=== PATIENT | female | born 1965 | race Caucasian/White ===

== ENCOUNTER → 2019-06-24 | Day surgery (SDC) | payer OTHER ==
[~2019-06-24] MED LIST: FENTANYL CITRATE/PF 100MCG/2 ML INJ ONE; LEVOTHYROXINE25 MCG PO; LIDOCAINE HCL 2% LOCAL INJ 5 ML SDV VIAL INJ ONE; MIDAZOLAM HCL 2 MG/2 ML VIAL ONE; OMEPRAZOLE40 MG PO; PROPOFOL IV EMULSION 10 MG/ML 50 ML VIAL ONE; RANITIDINE HCL150 MG PO; ZESTRIL20 MG PO
--- OUTSIDE RECORDS SUMMARY | 2019-06-24 11:09 | XMS REPORT | Summary of Care ---
Author Author [facility] Organization [facility] Address Unknown Phone Unavailable Encounter HQ Encntr_alias(FIN) [id number] Date(s): 03/11/17 - 03/11/17 [facility] [address] [place] [address]- Discharge Disposition: Home or Self Care Attending Physician: Mame Cantor DO Referring Physician: Mame Cantor DO Vital Signs No data available for this section Problem List Condition Effective Dates Status Health Status Informant Hypercholesterolemia Resolved (Confirmed) Hypertension(Confirm Resolved ed) Allergies, Adverse Reactions, Alerts Substance Reaction Severity Status penicillins Active Medications No data available for this section Results No data available for this section Immunizations No data available for this section Procedures Procedure Date Related Diagnosis Body Site Cholecystectomy Social History No data available for this section Assessment and Plan No data available for this section
--- OUTSIDE RECORDS SUMMARY | 2019-06-24 11:09 | XMS REPORT | Continuity of Care Document ---
Author Author [facility] Organization [facility] Address Unknown Phone Unavailable Care Team Providers Care Leak Patcher Name Role Phone [employer] Unavailable Unavailable Problems Problem Status Onset Date Classification Date Reported Comments Source ROUTINE Active 01/21/2019 [facility] DX: ROTUINE SCREENING Active 02/19/2017 [facility] R10.11 Active 11/02/2015 [facility] SCREENING Active 08/12/2014 [facility] Hypercholesterolemia (disorder) Resolved Problem 01/31/2019 [facility] Hypertensive disorder, systemic arterial (disorder) Resolved Problem 01/31/2019 [facility] Encounter for screening mammogram for malignant neoplasm of breast 01/31/2019 [facility] Edema, unspecified Active Problem 04/22/2019 [facility] Irritable bowel syndrome Active Problem 04/22/2019 [facility] Environmental allergies Active Problem 04/22/2019 [facility] Hypocalcemia Active Problem 04/22/2019 [facility] Leukocytosis, unspecified type Active Problem 04/22/2019 [facility] BMI 50.0-59.9, adult Active Problem 04/22/2019 [facility] Acute hyperglycemia Active Problem 04/22/2019 [facility] Essential hypertension Active Problem 04/22/2019 [facility] Morbid obesity due to excess calories Active Problem 04/22/2019 [facility] Acquired hypothyroidism Active Problem 04/22/2019 [facility] Environmental allergies Active Problem 12/09/2013 [facility] HTN (hypertension) Active Problem 06/10/2015 [facility] Obesity Active Problem 06/10/2015 [facility] Hypothyroid Active Problem 06/10/2015 [facility] Prediabetes Active Problem 06/10/2015 [facility] Other specified hypothyroidism Active Problem 07/26/2017 [facility] New onset type 1 diabetes mellitus, uncontrolled Active Problem 07/26/2017 [facility] Hyperglycemia Active Diagnosis 10/27/2017 [facility] Dysuria Active Diagnosis 10/27/2017 [facility] Cough Active Diagnosis 10/27/2017 [facility] Exposure to the flu Active Diagnosis 10/27/2017 [facility] Upper respiratory infection Active Diagnosis 10/19/2013 [facility] Cough Active Diagnosis 09/06/2014 [facility] Dependent edema Active Problem 06/10/2015 [facility] Acute sinusitis Active Diagnosis 09/06/2014 [facility] Environmental allergies Active Problem 06/10/2015 [facility] Abdominal cramping Active Diagnosis 07/21/2013 [facility] Excessive sweating Active Diagnosis 07/21/2013 [facility] Sinus tachycardia Active Diagnosis 07/21/2013 [facility] Nausea Active Diagnosis 10/21/2014 [facility] Diarrhea Active Diagnosis 10/21/2014 [facility] Light headed Active Diagnosis 07/21/2013 [facility] UTI (lower urinary tract infection) Active Diagnosis 07/20/2013 [facility] Right flank pain Active Diagnosis 07/20/2013 [facility] Flu-like symptoms Active Diagnosis 09/22/2014 [facility] URI (upper respiratory infection) Active Diagnosis 09/22/2014 [facility] Viral gastroenteritis Active Diagnosis 10/21/2014 [facility] Sore throat Active Diagnosis 01/23/2017 [facility] Screening for breast cancer Active Diagnosis 12/15/2016 [facility] Upper respiratory tract infection, unspecified type Active Diagnosis 12/15/2016 [facility] Sinusitis Active Diagnosis 12/05/2015 [facility] Pain of both breasts Active Diagnosis 05/23/2016 [facility] Medications Medication Details Route Status Patient Instructions Ordering Provider Order Date Source Bactrim DS 1 tablet Orally Active 800-160 MG Orally Twice a day Andre 10/16/2017 [facility] Tamiflu 1 capsule Orally Active 75 mg Orally daily Andre 10/16/2017 [facility] Lisinopril 1 tablet Orally Active 20 mg Orally Once a day [facility] 07/22/2017 [facility] Hydrochlorothiazide 1 tablet in the morning Orally Active 12.5 MG Orally Once a day prn [facility] 07/22/2017 [facility] Synthroid 1 tablet on an empty stomach in the morning Orally Active 25 MCG Orally Once a day [facility] 07/22/2017 [facility] Zithromax Z-Issac 2 tablets on the first day, then 1 tablet daily for 4 days Orally Active 250 MG Orally Once a day [place] 01/20/2017 [facility] Tessalon Perles 1 capsule as needed Orally Active 100 MG Orally Three times a day [place] 12/13/2016 [facility] Levaquin 1 tablet Orally Active 500 MG Orally Once a day [place] 12/13/2016 [facility] Levaquin 1 tablet Orally Active 500 mg Orally Once a day [place] 12/05/2015 [facility] Zithromax Z-Issac 2 tablets on the first day, then 1 tablet daily for 4 days Orally No Longer Active 250 MG Orally Once a day [place] 12/01/2015 [facility] Naproxen 1 tablet Orally Active 375 MG Orally Twice a day [place] 12/01/2015 [facility] Bentyl 1 tablet Orally Active 20 mg Orally Four times a day [place] 10/31/2015 [facility] Synthroid 1 tablet Orally Active 25 MCG Orally Once a day [facility] 06/09/2015 [facility] Hydrochlorothiazide 1-2 tablets Orally Active 12.5 MG Orally as needed (prn) [place] 05/31/2015 [facility] Promethazine HCl 1 tablet by mouth Active 25 MG by mouth every 6 hours prn nausea [facility] 10/19/2014 [facility] Zithromax Z-Issac 2 tablets on the first day, then 1 tablet daily for 4 days Orally Active 250 MG Orally Once a day [facility] 09/19/2014 [facility] Levaquin 1 tablet Orally Active 500 mg Orally Once a day [place] 07/29/2014 [facility] Albuterol Sulfate HFA 2 puffs as needed Inhalation Active 108 (90 Base) MCG/ACT Inhalation every 4 hrs [facility] 07/29/2014 [facility] Promethazine HCl 1 tablet at bedtime Orally Active 25 MG Orally Once a day [facility] 07/16/2013 [facility] Bentyl 1 capsule Orally Active 10 mg Orally Four times a day [facility] 07/16/2013 [facility] Entex T 1 tablet as needed Orally No Longer Active 60-375 MG Orally twice a day (bid) [facility] 07/12/2013 [facility] Bromfed DM 10 ml as needed Orally Active 30-2-10 MG/5ML Orally every 6 hrs [facility] 07/05/2013 [facility] Zithromax Z-Issac as directed Orally Active 250 MG Orally as directed [facility] 07/05/2013 [facility] Synthroid 1 tablet on an empty stomach in the morning Orally Active 25 MCG Orally Once a day [facility] 05/14/2013 [facility] Hydrochlorothiazide 1 capsule Orally Active 12.5 MG Orally prn [facility] 04/30/2013 [facility] Cipro 1 tablet Orally Active 250 MG Orally Twice a day [facility] 04/30/2013 [facility] Skelaxin 1/2-1 tablet Orally Active 800 MG Orally Three times a day prn back pain [facility] 04/30/2013 [facility] Synthroid 1 tablet po qd LAST REFILL, NEEDS TO BE SEEN NA Active 25 MCG [facility] Lisinopril 1 tablet po qd LAST REFILL, NEEDS TO BE SEEN NA Active 20 mg [facility] Ana 1 tablet Orally Active 180 MG Orally Once a day [facility] Omeprazole 1 capsule Orally Active 40 MG Orally Once a day [facility] Vitamin D (Ergocalciferol) 1 capsule Orally Active 09667 UNIT Orally once per week [facility] Tylenol 1 tablet as needed Orally Active 325 MG Orally PRN Andre [facility] Synthroid 1 tablet on an empty stomach in the morning Orally Active 25 MCG Orally Once a day [facility] Hydrochlorothiazide 1 tablet in the morning Orally Active 12.5 MG Orally Once a day prn [facility] Levothyroxine Sodium 1 tablet on an empty stomach in the morning Orally Active 25 MCG Orally [facility] a [facility] B12 Liquid Health Booster 15 ml Orally Active 1000 MCG/15ML Orally [facility] Ana 1 tablet Orally Active 180 MG Orally Once a [facility] Tylenol 1 tablet as needed Orally Active 325 MG Orally PRN [place] [facility] Ana 1 tablet Orally Active 180 MG Orally Once a day [facility] B12 Liquid Health Booster 15 ml Orally Active 1000 MCG/15ML Orally Once a day [facility] B12 Liquid Health Booster 15 ml Orally Active 1000 MCG/15ML Orally every 2 weeks [facility] Phenergan Unknown Orally No Longer Active 25 MG Orally [facility] Omeprazole 1 capsule Orally Active 40 MG Orally Once a day [facility] Synthroid 1 tablet Orally Active 25 MCG Orally Once a day [facility] Lisinopril 1 tablet orally Active 20 mg orally qd LAST REFILL, NEEDS TO BE SEEN [facility] Allergies, Adverse Reactions, Alerts Substance Category Reaction Severity Reaction type Status Date Reported Comments Source penicillin Adverse Reaction rash Adverse Reaction Active 10/16/2017 [facility] penicillins Assertion Drug allergy Active [facility] Immunizations Immunization Date Given Site Status Last Updated Comments Source FLU 18 YRS & [place] [id number] 05/21/2016 completed [facility] Results No Data Provided for This Section Pathology Reports No Data Provided for This Section Diagnostic Reports Report Value Date Source Breast Mammo Scrn GINO incl CAD MA BILATERAL DIGITAL SCREENING MAMMOGRAM WITH CAD: 01/29/2019 CLINICAL: /Routine. Current study was evaluated with a Computer Aided Detection (CAD) system. COMPARISON:Comparison is made to exams dated: 03/11/2017 mammogram, 10/27/2015 mammogram, and 09/02/2014 mammogram - [facility]. TECHNIQUE: Mammographic views were obtained using digital acquisition. VideoNot.es Version 1.3 was utilized for computer aided detection. FINDINGS: The tissue of both breasts is almost entirely fat. There are benign calcifications in both breasts. No significant masses, calcifications, or other findings are seen in either breast. There has been no significant interval change. IMPRESSION: BENIGN RECOMMENDATION:There is no mammographic evidence of malignancy. A 1 year screening mammogram is recommended.(01/30/2020) This exam was interpreted at [id number] for [facility]. Malorie cifuentest/penrad:01/29/2019 15:01:43 Senior Vice President And Chief Information Officer(s): Jannette Mclaughlin, [facility] letter sent: BI-RADS 1/2 Mammogram BI-RADS: 2 Benign 01/29/2019 [facility] Breast Mammo Scrn GINO w alfred incl CAD MA - BREAST MAMMO SCRN GINO W ALFRED INCL CAD MA BILATERAL DIGITAL SCREENING MAMMOGRAM 3D/2D WITH CAD: 03/11/2017 CLINICAL: /Screen. 2D digital mammographic images and 3D digital tomosynthesis images were obtained in the CC and MLO projections. Current study was evaluated with a Computer Aided Detection (CAD) system. Comparison is made to exams dated: 10/27/2015 mammogram, 09/02/2014 mammogram, 11/27/2011 mammogram, 10/23/2010 mammogram, 07/21/2009 mammogram - [facility] and 06/23/2007 mammogram - [facility]. The tissue of both breasts is almost entirely fat. There are benign calcifications in both breasts. No significant masses, calcifications, or other findings are seen in either breast. There has been no significant interval change. IMPRESSION: BENIGN There is no mammographic evidence of malignancy. A 1 year screening mammogram is recommended. Malorie herrera/penrad:03/11/2017 16:16:27 Senior Vice President And Chief Information Officer: Mary Bates, [facility] This exam was dictated and interpreted by [id number] for [facility]. letter sent: Normal exam Mammogram BI-RADS: 2 Benign 03/11/2017 [facility] Digital Mammo Screen Gino MA w alfred - DIGITAL MAMMO SCREEN GINO MA W ALFRED BILATERAL DIGITAL SCREENING MAMMOGRAM 3D/2D WITH CAD: 10/27/2015 CLINICAL: Screen. 2D digital mammographic images and 3D digital tomosynthesis images were obtained in the CC and MLO projections. Current study was evaluated with a Computer Aided Detection (CAD) system. Comparison is made to exams dated: 09/02/2014 mammogram, 11/27/2011 mammogram, 10/23/2010 mammogram, 07/21/2009 mammogram - [facility], 06/23/2007 mammogram - [facility] and 11/20/2006. The tissue of both breasts is almost entirely fat. There are benign calcifications in both breasts. No significant masses, calcifications, or other findings are seen in either breast. There has been no significant interval change. IMPRESSION: BENIGN There is no mammographic evidence of malignancy. A 1 year screening mammogram is recommended. Malorie herrera/penrad:10/30/2015 07:51:55 Senior Vice President And Chief Information Officer: Mary Bates [facility] This exam was dictated and interpreted by [id number] for [facility]. letter sent: Normal exam Mammogram BI-RADS: 2 Benign 10/27/2015 [facility] Digital Mammo Screen Gino MA w alfred - DIGITAL MAMMO SCREEN GINO MA W ALFRED BILATERAL DIGITAL SCREENING MAMMOGRAM 3D/2D WITH CAD: 09/02/2014 CLINICAL: Screen. 2D digital mammographic images and 3D digital tomosynthesis images were obtained in the CC and MLO projections. Current study was evaluated with a Computer Aided Detection (CAD) system. Comparison is made to exams dated: 11/27/2011 mammogram, 10/23/2010 mammogram, 07/21/2009 mammogram - [facility], 06/23/2007 mammogram - [facility] and 11/20/2006. The tissue of both breasts is almost entirely fat. There are benign calcifications in both breasts. No significant masses, calcifications, or other findings are seen in either breast. There has been no significant interval change. IMPRESSION: BENIGN There is no mammographic evidence of malignancy. A screening mammogram in one year is recommended. Malorie cifuentest/penrad:09/05/2014 08:49:09 Senior Vice President And Chief Information Officer: Mary Bates [facility] This exam was dictated and interpreted by [id number] for [facility]. letter sent: Normal exam Mammogram BI-RADS: 2 Benign 09/02/2014 [facility] Consultation Notes No Data Provided for This Section Discharge Summaries No Data Provided for This Section History and Physicals No Data Provided for This Section Vital Signs Vital Sign Value Date Comments Source Weight 313 10/16/2017 [facility] Height 64 10/16/2017 [facility] Temperature Oral (F) 98.3 F 10/16/2017 [facility] Heart Rate 97 10/16/2017 [facility] Diastolic (mm Hg) 90 10/16/2017 [facility] Systolic (mm Hg) 142 10/16/2017 [facility] Weight 312 07/22/2017 [facility] Height 64 07/22/2017 [facility] Heart Rate 82 07/22/2017 [facility] Diastolic (mm Hg) 92 07/22/2017 [facility] Systolic (mm Hg) 140 07/22/2017 [facility] Systolic (mm Hg) 118 01/20/2017 [facility] Height 64 01/20/2017 [facility] Temperature Oral (F) 98.8 F 01/20/2017 [facility] Heart Rate 94 01/20/2017 [facility] Diastolic (mm Hg) 70 01/20/2017 [facility] Weight 295 12/13/2016 [facility] Height 64 12/13/2016 [facility] Temperature Oral (F) 98.4 F 12/13/2016 [facility] Heart Rate 80 12/13/2016 [facility] Diastolic (mm Hg) 94 12/13/2016 [facility] Systolic (mm Hg) 156 12/13/2016 [facility] Weight 288 05/21/2016 [facility] Height 64 05/21/2016 [facility] Heart Rate 72 05/21/2016 [facility] Diastolic (mm Hg) 80 05/21/2016 [facility] Systolic (mm Hg) 130 05/21/2016 [facility] Systolic (mm Hg) 130 12/01/2015 [facility] Height 64 12/01/2015 [facility] Temperature Oral (F) 97.9 F 12/01/2015 [facility] Heart Rate 78 12/01/2015 [facility] Diastolic (mm Hg) 80 12/01/2015 [facility] Weight 322 10/19/2014 [facility] Height 64 10/19/2014 [facility] Temperature Oral (F) 98.7 F 10/19/2014 [facility] Heart Rate 80 10/19/2014 [facility] Diastolic (mm Hg) 70 10/19/2014 [facility] Systolic (mm Hg) 110 10/19/2014 [facility] Weight 322 09/19/2014 [facility] Height 64 09/19/2014 [facility] Temperature Oral (F) 98.2 F 09/19/2014 [facility] Heart Rate 80 09/19/2014 [facility] Diastolic (mm Hg) 90 09/19/2014 [facility] Systolic (mm Hg) 126 09/19/2014 [facility] Weight 323 07/29/2014 [facility] Height 64 07/29/2014 [facility] Temperature Oral (F) 98.1 F 07/29/2014 [facility] Heart Rate 84 07/29/2014 [facility] Diastolic (mm Hg) 80 07/29/2014 [facility] Systolic (mm Hg) 140 07/29/2014 [facility] Weight 307 09/09/2013 [facility] Height 64 09/09/2013 [facility] Heart Rate 80 09/09/2013 [facility] Diastolic (mm Hg) 90 09/09/2013 [facility] Systolic (mm Hg) 142 09/09/2013 [facility] Weight 304 07/16/2013 [facility] Height 64 07/16/2013 [facility] Temperature Oral (F) 98.4 F 07/16/2013 [facility] Heart Rate 98 07/16/2013 [facility] Diastolic (mm Hg) 98 07/16/2013 [facility] Systolic (mm Hg) 148 07/16/2013 [facility] Weight 308.5 07/05/2013 [facility] Height 64 07/05/2013 [facility] Temperature Oral (F) 98.1 F 07/05/2013 [facility] Heart Rate 70 07/05/2013 [facility] Diastolic (mm Hg) 60 07/05/2013 [facility] Systolic (mm Hg) 130 07/05/2013 [facility] Weight 308.5 07/05/2013 [facility] Height 64 07/05/2013 [facility] Temperature Oral (F) 98.1 F 07/05/2013 [facility] Heart Rate 70 07/05/2013 [facility] Diastolic (mm Hg) 60 07/05/2013 [facility] Systolic (mm Hg) 130 07/05/2013 [facility] Weight 307 05/14/2013 [facility] Height 64 05/14/2013 [facility] Heart Rate 78 05/14/2013 [facility] Diastolic (mm Hg) 80 05/14/2013 [facility] Systolic (mm Hg) 136 05/14/2013 [facility] Weight 310 04/30/2013 [facility] Height 64 04/30/2013 [facility] Temperature Oral (F) 98.1 F 04/30/2013 [facility] Heart Rate 80 04/30/2013 [facility] Diastolic (mm Hg) 100 04/30/2013 [facility] Systolic (mm Hg) 150 04/30/2013 [facility] Encounters Location Location Details Encounter Type Encounter Number Reason For Visit Attending Provider ADM Date DC Date Status Source [facility] PAIN IN RIGHT SIDE/[place] FEET [id number] 04/30/2013 04/30/2013 [facility] PAIN IN RIGHT SIDE/[place] FEET [id number] 04/30/2013 04/30/2013 [facility] PAIN IN RIGHT SIDE/[place] FEET [id number] 04/30/2013 04/30/2013 [facility] PAIN IN RIGHT SIDE/[place] FEET [id number] 04/30/2013 04/30/2013 [facility] PAIN IN RIGHT SIDE/[place] FEET [id number] 04/30/2013 04/30/2013 [facility] PAIN IN RIGHT SIDE/[place] [id number] 04/30/2013 04/30/2013 [facility] PAIN IN RIGHT SIDE/[place] [id number] 04/30/2013 04/30/2013 [facility] PAIN IN RIGHT SIDE/[place] FEET [id number] 04/30/2013 04/30/2013 [facility] PAIN IN RIGHT SIDE/[place] FEET [id number] 04/30/2013 04/30/2013 [facility] PAIN IN RIGHT SIDE/SWOLLEN FEET [id number] 04/30/2013 04/30/2013 [facility] PAIN IN RIGHT SIDE/SWOLLEN FEET [id number] 04/30/2013 04/30/2013 [facility] PAIN IN RIGHT SIDE/SWOLLEN FEET [id number] 04/30/2013 04/30/2013 [facility] PAIN IN RIGHT SIDE/SWOLLEN FEET [id number] 04/30/2013 04/30/2013 [facility] PAIN IN RIGHT SIDE/SWOLLEN FEET [id number] 04/30/2013 04/30/2013 [facility] PAIN IN RIGHT SIDE/SWOLLEN FEET [id number] 04/30/2013 04/30/2013 [facility] Unknown [id number] 05/03/2013 05/03/2013 [facility] Unknown [id number] 05/03/2013 05/03/2013 [facility] Unknown [id number] 05/03/2013 05/03/2013 [facility] Unknown [id number] 05/03/2013 05/03/2013 [facility] Unknown [id number] 05/03/2013 05/03/2013 [facility] Unknown [id number] 05/03/2013 05/03/2013 [facility] Unknown [id number] 05/03/2013 05/03/2013 [facility] Unknown [id number] 05/03/2013 05/03/2013 [facility] Unknown [id number] 05/03/2013 05/03/2013 [facility] Unknown [id number] 05/03/2013 05/03/2013 [facility] Unknown [id number] 05/03/2013 05/03/2013 [facility] Unknown [id number] 05/03/2013 05/03/2013 [facility] Unknown [id number] 05/03/2013 05/03/2013 [facility] Unknown [id number] 05/03/2013 05/03/2013 [facility] Unknown [id number] 05/03/2013 05/03/2013 [facility] Unknown [id number] 05/03/2013 05/03/2013 [facility] Unknown [id number] 05/03/2013 05/03/2013 [facility] Follow-Up [id number] 05/14/2013 05/14/2013 [facility] Follow-Up [id number] 05/14/2013 05/14/2013 [facility] Follow-Up [id number] 05/14/2013 05/14/2013 [facility] Follow-Up [id number] 05/14/2013 05/14/2013 [facility] Follow-Up [id number] 05/14/2013 05/14/2013 [facility] Follow-Up [id number] 05/14/2013 05/14/2013 [facility] Follow-Up [id number] 05/14/2013 05/14/2013 [facility] Follow-Up [id number] 05/14/2013 05/14/2013 [facility] Follow-Up [id number] 05/14/2013 05/14/2013 [facility] Follow-Up [id number] 05/14/2013 05/14/2013 [facility] Follow-Up [id number] 05/14/2013 05/14/2013 [facility] Follow-Up [id number] 05/14/2013 05/14/2013 [facility] Follow-Up [id number] 05/14/2013 05/14/2013 [facility] Follow-Up [id number] 05/14/2013 05/14/2013 [facility] Follow-Up [id number] 05/14/2013 05/14/2013 [facility] sore throat [id number] 07/05/2013 07/05/2013 [facility] sore throat [id number] 07/05/2013 07/05/2013 [facility] sore throat [id number] 07/05/2013 07/05/2013 [facility] sore throat [id number] 07/05/2013 07/05/2013 [facility] sore throat [id number] 07/05/2013 07/05/2013 [facility] sore throat [id number] 07/05/2013 07/05/2013 [facility] sore throat [id number] 07/05/2013 07/05/2013 [facility] sore throat [id number] 07/05/2013 07/05/2013 [facility] sore throat [id number] 07/05/2013 07/05/2013 [facility] sore throat [id number] 07/05/2013 07/05/2013 [facility] sore throat [id number] 07/05/2013 07/05/2013 [facility] sore throat [id number] 07/05/2013 07/05/2013 [facility] Unknown [id number] 07/12/2013 07/12/2013 [facility] Unknown [id number] 07/12/2013 07/12/2013 [facility] Unknown [id number] 07/12/2013 07/12/2013 [facility] Unknown [id number] 07/12/2013 07/12/2013 [facility] Unknown [id number] 07/12/2013 07/12/2013 [facility] Unknown [id number] 07/12/2013 07/12/2013 [facility] Unknown [id number] 07/12/2013 07/12/2013 [facility] Unknown [id number] 07/12/2013 07/12/2013 [facility] Unknown [id number] 07/12/2013 07/12/2013 [facility] Unknown [id number] 07/12/2013 07/12/2013 [facility] Unknown [id number] 07/12/2013 07/12/2013 [facility] Unknown [id number] 07/12/2013 07/12/2013 [facility] Unknown [id number] 07/12/2013 07/12/2013 [facility] Unknown [id number] 07/12/2013 07/12/2013 [facility] Unknown [id number] 07/12/2013 07/12/2013 [facility] Unknown [id number] 07/12/2013 07/12/2013 [facility] DIARRHEA [id number] 07/16/2013 07/16/2013 [facility] DIARRHEA [id number] 07/16/2013 07/16/2013 [facility] DIARRHEA [id number] 07/16/2013 07/16/2013 [facility] DIARRHEA [id number] 07/16/2013 07/16/2013 [facility] DIARRHEA [id number] 07/16/2013 07/16/2013 [facility] DIARRHEA [id number] 07/16/2013 07/16/2013 [facility] DIARRHEA [id number] 07/16/2013 07/16/2013 [facility] DIARRHEA [id number] 07/16/2013 07/16/2013 [facility] DIARRHEA [id number] 07/16/2013 07/16/2013 [facility] DIARRHEA [id number] 07/16/2013 07/16/2013 [facility] DIARRHEA [id number] 07/16/2013 07/16/2013 [facility] DIARRHEA [id number] 07/16/2013 07/16/2013 [facility] DIARRHEA [id number] 07/16/2013 07/16/2013 [facility] SWOLLEN FEET [id number] 09/09/2013 09/09/2013 [facility] SWOLLEN FEET [id number] 09/09/2013 09/09/2013 [facility] SWOLLEN FEET [id number] 09/09/2013 09/09/2013 [facility] SWOLLEN FEET [id number] 09/09/2013 09/09/2013 [facility] SWOLLEN FEET [id number] 09/09/2013 09/09/2013 [facility] SWOLLEN FEET [id number] 09/09/2013 09/09/2013 [facility] SWOLLEN FEET [id number] 09/09/2013 09/09/2013 [facility] SWOLLEN FEET [id number] 09/09/2013 09/09/2013 [facility] SWO[place]EN FEET [id number] 09/09/2013 09/09/2013 [facility] SWO[place] FEET [id number] 09/09/2013 09/09/2013 [facility] SWOLLEN FEET [id number] 09/09/2013 09/09/2013 [facility] SINUS [id number] 07/29/2014 07/29/2014 [facility] SINUS [id number] 07/29/2014 07/29/2014 [facility] SINUS [id number] 07/29/2014 07/29/2014 [facility] SINUS [id number] 07/29/2014 07/29/2014 [facility] SINUS [id number] 07/29/2014 07/29/2014 [facility] SINUS [id number] 07/29/2014 07/29/2014 [facility] SINUS [id number] 07/29/2014 07/29/2014 [facility] SINUS [id number] 07/29/2014 07/29/2014 [facility] SINUS [id number] 07/29/2014 07/29/2014 [facility] SINUS [id number] 07/29/2014 07/29/2014 [facility] [id number] Radha Brown 09/02/2014 09/03/2014 [facility] flu like sx's [id number] 09/19/2014 09/19/2014 [facility] flu like sx's [id number] 09/19/2014 09/19/2014 [facility] flu like sx's [id number] 09/19/2014 09/19/2014 [facility] flu like sx's [id number] 09/19/2014 09/19/2014 [facility] flu like sx's [id number] 09/19/2014 09/19/2014 [facility] flu like sx's [id number] 09/19/2014 09/19/2014 [facility] flu like sx's [id number] 09/19/2014 09/19/2014 [facility] flu like sx's [id number] 09/19/2014 09/19/2014 [facility] flu like sx's [id number] 09/19/2014 09/19/2014 [facility] CONSTANT VOMITTING [id number] 10/19/2014 10/19/2014 [facility] CONSTANT VOMITTING [id number] 10/19/2014 10/19/2014 [facility] CONSTANT VOMITTING [id number] 10/19/2014 10/19/2014 [facility] CONSTANT VOMITTING [id number] 10/19/2014 10/19/2014 [facility] CONSTANT VOMITTING [id number] 10/19/2014 10/19/2014 [facility] CONSTANT VOMITTING [id number] 10/19/2014 10/19/2014 [facility] CONSTANT VOMITTING [id number] 10/19/2014 10/19/2014 [facility] CONSTANT VOMITTING [id number] 10/19/2014 10/19/2014 [facility] cough/chest congestion [id number] 12/19/2014 12/19/2014 [facility] cough/chest congestion [id number] 12/19/2014 12/19/2014 [facility] cough/chest congestion [id number] 12/19/2014 12/19/2014 [facility] cough/chest congestion [id number] 12/19/2014 12/19/2014 [facility] cough/chest congestion [id number] 12/19/2014 12/19/2014 [facility] cough/chest congestion [id number] 12/19/2014 12/19/2014 [facility] cough/chest congestion [id number] 12/19/2014 12/19/2014 [facility] CHEST CONGESTION AND COUGH [id number] 01/11/2015 01/11/2015 [facility] CHEST CONGESTION AND COUGH [id number] 01/11/2015 01/11/2015 [facility] CHEST CONGESTION AND COUGH [id number] 01/11/2015 01/11/2015 [facility] CHEST CONGESTION AND COUGH [id number] 01/11/2015 01/11/2015 [facility] CHEST CONGESTION AND COUGH [id number] 01/11/2015 01/11/2015 [facility] CHEST CONGESTION AND COUGH [id number] 01/11/2015 01/11/2015 [facility] CHEST CONGESTION AND COUGH [id number] 01/11/2015 01/11/2015 [facility] FOOT AND LEG PAIN/TIGHTNESS [id number] 03/28/2015 03/28/2015 [facility] FOOT AND LEG PAIN/TIGHTNESS [id number] 03/28/2015 03/28/2015 [facility] FOOT AND LEG PAIN/TIGHTNESS [id number] 03/28/2015 03/28/2015 [facility] FOOT AND LEG PAIN/TIGHTNESS [id number] 03/28/2015 03/28/2015 [facility] FOOT AND LEG PAIN/TIGHTNESS [id number] 03/28/2015 03/28/2015 [facility] FOOT AND LEG PAIN/TIGHTNESS [id number] 03/28/2015 03/28/2015 [facility] FOOT AND LEG PAIN/TIGHTNESS [id number] 03/28/2015 03/28/2015 [facility] Results [id number] 03/30/2015 03/30/2015 [facility] Results [id number] 03/30/2015 03/30/2015 [facility] Results [id number] 03/30/2015 03/30/2015 [facility] Results [id number] 03/30/2015 03/30/2015 [facility] Results [id number] 03/30/2015 03/30/2015 [facility] Results [id number] 03/30/2015 03/30/2015 [facility] Results [id number] 03/30/2015 03/30/2015 [facility] lab results [id number] 06/09/2015 06/09/2015 [facility] lab results [id number] 06/09/2015 06/09/2015 [facility] lab results [id number] 06/09/2015 06/09/2015 [facility] lab results [id number] 06/09/2015 06/09/2015 [facility] lab results [id number] 06/09/2015 06/09/2015 [facility] lab results [id number] 06/09/2015 06/09/2015 [facility] LAB RESULTS [id number] 07/20/2015 07/20/2015 [facility] LAB RESULTS [id number] 07/20/2015 07/20/2015 [facility] LAB RESULTS [id number] 07/20/2015 07/20/2015 [facility] LAB RESULTS [id number] 07/20/2015 07/20/2015 [facility] LAB RESULTS [id number] 07/20/2015 07/20/2015 [facility] Outpatient [id number] Mame Cantor 10/27/2015 10/28/2015 [facility] Test results [id number] 11/07/2015 11/07/2015 [facility] Test results [id number] 11/07/2015 11/07/2015 [facility] Test results [id number] 11/07/2015 11/07/2015 [facility] Test results [id number] 11/07/2015 11/07/2015 [facility] Test results [id number] 11/07/2015 11/07/2015 [facility] Refill [id number] 11/24/2015 11/24/2015 [facility] Refill [id number] 11/24/2015 11/24/2015 [facility] Refill [id number] 11/24/2015 11/24/2015 [facility] Refill [id number] 11/24/2015 11/24/2015 [facility] Sinus problems [id number] 12/01/2015 12/01/2015 [facility] Sinus problems [id number] 12/01/2015 12/01/2015 [facility] Sinus problems [id number] 12/01/2015 12/01/2015 [facility] Unknown [id number] 12/05/2015 12/05/2015 [facility] Unknown [id number] 12/05/2015 12/05/2015 [facility] Pt has breast pain [id number] 05/21/2016 05/21/2016 [facility] Outpatient [id number] Mame JeanJohnson 03/11/2017 03/12/2017 [facility] Outpatient [id number] Mame Johnson 01/29/2019 01/30/2019 [facility] Procedures Procedure Code Date Perfomer Comments Source Cholecystectomy [id number] [facility] Assessment and Plan No Data Provided for This Section Plan of Care No Data Provided for This Section Social History Social History Date Source No data available for this section 01/30/2019 [facility] Social History ElementQualifiersDate Reported 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 None May 21, 2016 Last Colonoscopy: . 2010May 21, 2016 Tobacco Use: . Are you a: never smoker May 21, 2016 Flu Vaccine: . NO May 21, 2016 Use of recreational / street drugs? . Answer: No May 21, 2016 Do you have pets? . Status: Yes, Type: dog(s) May 21, 2016 Ethnicity . Status , Is martiniquais your primary language? Yes May 21, 2016 Marital Status: . May 21, 2016 Caffeine intake? . Status: Yes, What type: Coffee, 1 - 2 cup(s) a day May 21, 2016 Do you exercise? . Answer: Yes, Type: walking May 21, 2016 Depression Screening: . negative May 21, 2016 Last Bone Density: . never May 21, 2016 Do you drink alcohol? . Status: Yes, Type: Beer, How often? Socially May 21, 2016 05/21/2016 [facility] Family History Value Date Source QualifierDescriptionCommentDate Reported Maternal Grandmother ovarian cancer May 21, 2016 Paternal Grandmother Comment not available May 21, 2016 Siblings Comment not available May 21, 2016 Maternal Grandfather Comment not available May 21, 2016 Children Comment not available May 21, 2016 Father diabetes mellitus, dementia May 21, 2016 Paternal Grandfather diabetes mellitus May 21, 2016 Mother COPD May 21, 2016 Other: Comment not available May 21, 2016 05/23/2016 [facility] QualifierDescriptionCommentDate Reported Maternal Grandmother ovarian cancer December 01, 2015 Paternal Grandmother Comment not available December 01, 2015 Siblings Comment not available December 01, 2015 Maternal Grandfather Comment not available December 01, 2015 Children Comment not available December 01, 2015 Father diabetes mellitus, dementia December 01, 2015 Paternal Grandfather diabetes mellitus December 01, 2015 Mother COPD December 01, 2015 Other: Comment not available December 01, 2015 12/05/2015 [facility] QualifierDescriptionCommentDate Reported Mother COPD Oct 19, 2014 Maternal Grandmother ovarian cancer Oct 19, 2014 Father diabetes mellitus, dementia Oct 19, 2014 Paternal Grandfather diabetes mellitus Oct 19, 2014 10/21/2014 [facility] QualifierDescriptionCommentDate Reported Mother COPD Sep 19, 2014 Maternal Grandmother ovarian cancer Sep 19, 2014 Father diabetes mellitus, dementia Sep 19, 2014 Paternal Grandfather diabetes mellitus Sep 19, 2014 09/22/2014 [facility] QualifierDescriptionCommentDate Reported Mother COPD Jul 29, 2014 Maternal Grandmother ovarian cancer Jul 29, 2014 Father diabetes mellitus, dementia Jul 29, 2014 Paternal Grandfather diabetes mellitus Jul 29, 2014 09/06/2014 [facility] QualifierDescriptionCommentDate Reported Mother COPD Sep 09, 2013 Maternal Grandmother ovarian cancer Sep 09, 2013 Father diabetes mellitus, dementia Sep 09, 2013 Paternal Grandfather diabetes mellitus Sep 09, 2013 12/09/2013 [facility] QualifierDescriptionCommentDate Reported Mother COPD Jul 05, 2013 Maternal Grandmother ovarian cancer Jul 05, 2013 Father diabetes mellitus, dementia Jul 05, 2013 Paternal Grandfather diabetes mellitus Jul 05, 2013 10/19/2013 [facility] QualifierDescriptionCommentDate Reported Mother COPD Jul 16, 2013 Maternal Grandmother ovarian cancer Jul 16, 2013 Father diabetes mellitus, dementia Jul 16, 2013 Paternal Grandfather diabetes mellitus Jul 16, 2013 07/21/2013 [facility] QualifierDescriptionCommentDate Reported Mother COPD May 14, 2013 Maternal Grandmother ovarian cancer May 14, 2013 Father diabetes mellitus, dementia May 14, 2013 Paternal Grandfather diabetes mellitus May 14, 2013 07/20/2013 [facility] QualifierDescriptionCommentDate Reported Mother COPD Apr 30, 2013 Maternal Grandmother ovarian cancer Apr 30, 2013 Father diabetes mellitus, dementia Apr 30, 2013 Paternal Grandfather diabetes mellitus Apr 30, 2013 07/20/2013 [facility] Advance Directives No Data Provided for This Section Functional Status No Data Provided for This Section
--- OUTSIDE RECORDS SUMMARY | 2019-06-24 11:09 | XMS REPORT | Clinical Summary ---
Author Author [facility] Address Unknown Phone Unavailable Care Team Providers Care Manuscripts Curator Name Role Phone Mame Cantor DO PCP Allergies Comments Active Allergy Reactions Severity Noted Date Penicillins Rash Low 01/02/2018 Medications End Date Status Medication Sig Dispensed Refills Start Date Active lisinopril 20 mg. 0 (PRINIVIL,ZESTRIL) 20 mg 8 tablet Active levothyroxine (SYNTHROID, 25 mcg. 0 LEVOXYL) 25 mcg tablet 8 Active hydroCHLOROthiazide 12.5 mg. 0 (HYDRODIURIL) 12.5 MG 8 tablet Active omeprazole (PriLOSEC) 40 40 mg. 0 MG capsule 8 Active fexofenadine (JHON) Take 180 mg 0 180 MG tablet by mouth daily. Active Problems Problem Noted Date Incisional hernia x 2, without obstruction or gangrene 01/02/2018 Morbid obesity due to excess calories 01/02/2018 Essential hypertension 01/02/2018 Family History Medical History Relation Name Comments Diabetes Father Dad Ovarian cancer Maternal Grandma Grandmother Heart disease Mother Mom CHF Asthma Sister Relation Name Status Comments Father Dad Maternal Grandmother Grandma Mother Mom Sister Social History Date Tobacco Use Types Packs/Day Years Used Never Smoker Smokeless Tobacco: Never Used Drinks/Week oz/Week Comments Alcohol Use 1-3 Standard drinks or equivalent 1.0 - 3.0 Social drinker / occassional beer or mixed drink Yes Sex Assigned at Date Recorded Not on file Industry Job Start Date Occupation Not on file Not on file Not on file Travel End Travel History Travel Start No recent travel history available. Last Filed Vital Signs Not on file Plan of Treatment Health Maintenance Due Date Last Done Comments CERVICAL CANCER SCREENING 1987 BREAST CANCER SCREENING 2016 COLONOSCOPY SCREENING 2016 SHINGLES VACCINES (#1) 2016 INFLUENZA VACCINE 04/29/2019 Results Not on fileafter 06/23/2018 Insurance Type Payer Benefit Subscriber ID Effective Phone Address Plan / Dates Group PPO AETNA AETNA PPO xxxxxxxxxx [id number] OPEN resent CHOICE Advance Directives For more information, please contact: [phone] Patient Haz Tech Explanation Type Date Recorded Advance Directives, Living Will and Medical Power of Lithopone Mill Worker
--- OUTSIDE RECORDS SUMMARY | 2019-06-24 11:09 | XMS REPORT | Summary of Care ---
Author Organization Unknown Address Unknown Phone Unavailable Encounter HQ Encntr_alibrandon(CARLOS) [id number] Date(s): 09/02/14 - 09/02/14 [facility] [address] [place], [place] [id number] [place] [address] Discharge Disposition: Home Physician Attending: Radha Brown MD Physician_Referring: Radha Brown MD Reason for Visit SCREENING Problem List Condition Effective Dates Status Health Status Informant Hypercholesterolemia Resolved (Confirmed) Hypertension(Confirm Resolved ed) Allergies, Adverse Reactions, Alerts Substance Reaction Severity Status penicillins Active Medications No data available for this section Medications Administered During Your Visit No data available for this section Immunizations No data available for this section
--- OUTSIDE RECORDS SUMMARY | 2019-06-24 11:09 | XMS REPORT | Summary of Care ---
Author Author [facility] Organization [facility] Address Unknown Phone Unavailable Encounter HQ Encntr_alias(FIN) [id number] Date(s): 10/27/15 - 10/27/[address] [facility] [address] [place] [address]- [phone] Discharge Disposition: Home Attending Physician: Mame Cantor DO Referring Physician: [...]
--- OUTSIDE RECORDS SUMMARY | 2019-06-24 11:09 | XMS REPORT ---
Author Author Magalys Pereira [facility] [employer] Address Unknown Phone Unavailable Care Team Providers Care Xm1 Tank Driver Name Role Phone Magalys Pereira Unavailable Allergies, Adverse Reactions, Alerts Substance Reaction Event Type penicillin rash Drug Allergy Problems Problem Type Condition Code Onset Dates Condition Status Problem Edema, unspecified R60.9 Active Problem Acute hyperglycemia R73.9 Active Problem Other specified hypothyroidism E03.8 Active Problem New onset type 1 diabetes mellitus, uncontrolled E10.65 Active Problem Morbid obesity due to excess calories E66.01 Active Problem Leukocytosis, unspecified type D72.829 Active Problem Environmental allergies Z91.09 Active Problem Essential hypertension I10 Active Problem Acquired hypothyroidism E03.9 Active Problem Irritable bowel syndrome K58.9 Active Assessment Screening for breast cancer Z12.39 Active Assessment Sore throat J02.9 Active Assessment Upper respiratory tract infection, unspecified type J06.9 Active Assessment New onset type 1 diabetes mellitus, uncontrolled E10.65 Active Assessment Leukocytosis, unspecified type D72.829 Active Assessment Essential hypertension I10 Active Medications Medication Code System Code Instructions Start Date End Date Status Dosage Ana [facility] [address]-06 180 MG Orally Once a day Active 1 tablet Tessalon Perles [facility] [address]-91 100 MG Orally Three times a day December 13, 2016 December 23, 2016 Active 1 capsule as needed Tylenol [facility] [address]-15 325 MG Orally PRN Active 1 tablet as needed Hydrochlorothiazide [facility] [address]-06 12.5 MG Orally as needed (prn) May 31, 2015 Active 1-2 tablets Levaquin [facility] [address]-05 500 MG Orally Once a day December 13, 2016 December 23, 2016 Active 1 tablet Omeprazole [facility] [address]-17 40 MG Orally Once a day Active 1 capsule Vital Signs Date/Time: December 13, 2016 BMI 50.63 Index Weight 295 lbs Height 64 in Temperature 98.4 F Cardiac Monitoring Heart Rate 80 /min Blood Pressure Diastolic 94 mm Hg Blood Pressure Systolic 156 mm Hg Results Name Result Date Reference Range Unit Abnormality Flag Chest 2 views- Xray CBC ----Platelets 350 20161213 ----NEUTROPHILS MID-0.6,GRA-8.5 20161213 ----MCHC 31.9 20161213 ----MCH 25.6L 20161213 ----MCV 80.3 20161213 ----WBC 11.2h 20161213 ----RDW 15.1H 20161213 ----RBC 5.50 20161213 ----Hemoglobin 14.1 20161213 ----Hematocrit 44.2 20161213 RAPID STREP ----Negative negative 20161213 Summary Purpose eClinicalWorks Submission
--- OUTSIDE RECORDS SUMMARY | 2019-06-24 11:09 | XMS REPORT | Summary of Care ---
Author Author [facility] Organization [facility] Address Unknown Phone Unavailable Encounter HQ Encntr_alias(FIN) [id number] Date(s): 01/29/19 - 01/29/19 [facility] [address] [place] [address]- Encounter Diagnosis Encounter for screening mammogram for malignant neoplasm of breast (Final) - Discharge Disposition: Home or Self Care Attending Physician: Mame Ambriz DO Referring Physician: Mame Ambriz DO Vital Signs No data available for this section Problem List Condition Effective Dates Status Health Status Informant Hypercholesterolemia Resolved (Confirmed) Hypertension(Confirm Resolved ed) Allergies, Adverse Reactions, Alerts Substance Reaction Severity Status penicillins Active Medications No data available for this section Results No data available for this section Immunizations No data available for this section Procedures Procedure Date Related Diagnosis Body Site Status Cholecystectomy Completed Social History No data available for this section Assessment and Plan No data available for this section
--- OUTSIDE RECORDS SUMMARY | 2019-06-24 11:10 | XMS REPORT ---
Author Author Mame Ambriz Organization [employer] Address Unknown Phone Unavailable Care Team Providers Care General Lithographic Worker Name Role Phone Mame Ambriz CP Unavailable Allergies No Known Allergies Problems Problem Type Condition Code Onset Dates Condition Status Problem Edema, unspecified R60.9 Active Problem Irritable bowel syndrome K58.9 Active Problem Environmental allergies Z91.09 Active Problem Hypocalcemia E83.51 Active Problem Leukocytosis, unspecified type D72.829 Active Problem BMI 50.0-59.9, adult Z68.43 Active Problem Acute hyperglycemia R73.9 Active Problem Essential hypertension I10 Active Problem Morbid obesity due to excess calories E66.01 Active Problem Acquired hypothyroidism E03.9 Active Medications Medication Code System Code Instructions Start Date End Date Status Dosage Lisinopril [facility] 23879889353 20 mg orally qd LAST REFILL, NEEDS TO BE SEEN Active 1 tablet Results No Known Results Summary Purpose eClinicalWorks Submission
--- OUTSIDE RECORDS SUMMARY | 2019-06-24 11:10 | XMS REPORT ---
Author Author Magalys Pereira [facility] [employer] Address Unknown Phone Unavailable Care Team Providers Care Cleaning Porter Name Role Phone Magalys Pereira Unavailable Encounters Encounter Location Date Follow-Up [facility] May 14, 2013 DIARRHEA [facility] Jul 16, 2013 sore throat [facility] Jul 05, 2013 [place] [facility] Sep 09, 2013 Unknown [facility] May 03, 2013 Unknown [facility] Jul 12, 2013 PAIN IN RIGHT SIDE/[place] FEET [facility] Apr 30, 2013 CONSTANT VOMITTING [facility] Oct 19, 2014 Unknown [facility] December 05, 2015 SINUS [facility] Jul 29, 2014 flu like sx's [facility] Sep 19, 2014 Test results [facility] Nov 07, 2015 Refill [facility] Nov 24, 2015 lab results [facility] Jun 09, 2015 LAB RESULTS [facility] Jul 20, 2015 FOOT AND LEG PAIN/TIGHTNESS [facility] March 28, 2015 Results [facility] March 30, 2015 cough/chest congestion [facility] December 19, 2014 CHEST CONGESTION AND COUGH [facility] January 11, 2015 Sinus problems [facility] December 01, 2015 Problems Problem Type Condition ICD-9 Code Onset Dates Condition Status Problem Other specified hypothyroidism E03.8 Active Problem Edema, unspecified R60.9 Active Problem Morbid obesity due to excess calories E66.01 Active Problem Acquired hypothyroidism E03.9 Active Problem New onset type 1 diabetes mellitus, uncontrolled E10.65 Active Problem Essential hypertension I10 Active Problem Acute hyperglycemia R73.9 Active Problem Irritable bowel syndrome K58.9 Active Problem Environmental allergies Z91.09 Active Medications Medication Code System Code Instructions Start Date End Date Status Dosage Zithromax Z-Issac [facility] [address]-71 250 MG Orally Once a day December 01, 2015 December 06, 2015 Inactive 2 tablets on the first day, then 1 tablet daily for 4 days Levaquin [facility] [address]-08 500 mg Orally Once a day December 05, 2015 December 15, 2015 Active 1 tablet Social History Social History Element Qualifiers Date 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 None December 01, 2015 Last Colonoscopy: . 2010December 01, 2015 Tobacco Use: . Are you a: never smoker December 01, 2015 Flu Vaccine: . NO December 01, 2015 Use of recreational / street drugs? . Answer: No December 01, 2015 Do you have pets? . Status: Yes, Type: dog(s) December 01, 2015 Ethnicity . Status , Is polish your primary language? Yes December 01, 2015 Marital Status: . December 01, 2015 Caffeine intake? . Status: Yes, What type: Coffee, 1 - 2 cup(s) a day December 01, 2015 Do you exercise? . Answer: Yes, Type: walking December 01, 2015 Depression Screening: . negative December 01, 2015 Last Bone Density: . never December 01, 2015 Do you drink alcohol? . Status: Yes, Type: Beer, How often? Socially December 01, 2015 Summary Purpose eClinicalWorks Submission
--- OUTSIDE RECORDS SUMMARY | 2019-06-24 11:10 | XMS REPORT ---
Author Author Mame Pope [facility] eClinicalWorks Address Unknown Phone Unavailable Care Team Providers Care Senior Architect Name Role Phone Juan AAlex Mame CP Unavailable Allergies, Adverse Reactions, Alerts Substance Reaction Event Type penicillin rash Drug Allergy Encounters Encounter Location Date Follow-Up [facility] May 14, 2013 Unknown [facility] May 03, 2013 Unknown [facility] Jul 12, 2013 PAIN IN RIGHT SIDE/SWOLLEN FEET [facility] Apr 30, 2013 Problems Problem Type Condition ICD-9 Code Onset Dates Condition Status Problem Hypothyroid 244.9 Active Problem Obesity 278.00 Active Problem Prediabetes 790.29 Active Assessment Prediabetes 790.29 Active Assessment Hypothyroid 244.9 Active Problem Environmental allergies 477.9 Active Problem HTN (hypertension) 401.9 Active Medications Medication Code System Code Instructions Start Date End Date Status Dosage Tylenol [facility] [address]-60 325 MG Orally every 6 hrs Active 1 tablet as needed Hydrochlorothiazide [facility] [address]-33 12.5 MG Orally prn Apr 30, 2013 Active 1 capsule Synthroid [facility] [address]-86 25 MCG Orally Once a day May 14, 2013 Active 1 tablet on an empty stomach in the morning Ana MULTUM 32219 180 MG Orally Once a day Active 1 tablet Social History Social History Element Qualifiers Date Reported children . None May 14, 2013 Tobacco Use: . Are you a: never smoker May 14, 2013 Marital Status: . May 14, 2013 Do you drink alcohol? . Status: Yes, Type: Beer, How often? 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
--- OUTSIDE RECORDS SUMMARY | 2019-06-24 11:10 | XMS REPORT ---
Author Author Lona Rodriguez [facility] eClinicalWorks Address Unknown Phone Unavailable Care Team Providers Care Ic Design Engineer Name Role Phone Lona Rodriguez CP Unavailable Allergies, Adverse Reactions, Alerts Substance Reaction Event Type penicillin rash Drug Allergy Encounters Encounter Location Date Follow-Up [facility] May 14, 2013 DIARRHEA [facility] Jul 16, 2013 sore throat [facility] Jul 05, 2013 SW[place] [address]ET [facility] Sep 09, 2013 Unknown [facility] May 03, 2013 Unknown [facility] Jul 12, 2013 PAIN IN RIGHT SIDE/SWOLLEN FEET [facility] Apr 30, 2013 SINUS [facility] Jul 29, 2014 Problems Problem Type Condition ICD-9 Code Onset Dates Condition Status Assessment Cough 786.2 Active Problem Prediabetes 790.29 Active Problem Hypothyroid 244.9 Active Problem Dependent edema 782.3 Active Problem HTN (hypertension) 401.9 Active Assessment Acute sinusitis 461.9 Active Problem Obesity 278.00 Active Problem Environmental allergies V15.09 Active Medications Medication Code System Code Instructions Start Date End Date Status Dosage Tylenol [facility] [address]-75 325 MG Orally PRN Active 1 tablet as needed Levaquin [facility] [address]-17 500 mg Orally Once a day Jul 29, 2014 Aug 05, 2014 Active 1 tablet Ana [facility] [address]-12 180 MG Orally Once a day Active 1 tablet Levothyroxine Sodium [facility] [address]-60 25 MCG Orally Once a day Active 1 tablet on an empty stomach in the morning Albuterol Sulfate HFA [facility] [address]-79 108 (90 Base) MCG/ACT Inhalation every 4 hrs Jul 29, 2014 Active 2 puffs as needed B12 Liquid Health Booster [facility] [address]-82 1000 MCG/15ML Orally Once a day Active 15 ml Social History Social History Element Qualifiers Date Reported children . None Jul 29, 2014 Tobacco Use: . Are you a: never smoker Jul 29, 2014 Marital Status: . Jul 29, 2014 Do you drink alcohol? . Status: Yes, Type: Beer, How often? 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
--- OUTSIDE RECORDS SUMMARY | 2019-06-24 11:10 | XMS REPORT ---
Author Author Mame Cantor [facility] eClinicalWorks Address Unknown Phone Unavailable Care Team Providers Care Accounting Machine Mechanic Name Role Phone Mame Cantor Unavailable Encounters Encounter Location Date Follow-Up [facility] May 14, 2013 DIARRHEA [facility] Jul 16, 2013 sore throat [facility] Jul 05, 2013 [place] [address] [facility] Sep 09, 2013 Unknown [facility] May 03, 2013 Unknown [facility] Jul 12, 2013 PAIN IN RIGHT SIDE/SWOLLEN FEET [facility] Apr 30, 2013 CONSTANT VOMITTING [facility] Oct 19, 2014 SINUS [facility] Jul 29, 2014 flu like sx's [facility] Sep 19, 2014 lab results [facility] Jun 09, 2015 FOOT AND LEG PAIN/TIGHTNESS [facility] March 28, 2015 Results [facility] March 30, 2015 cough/chest congestion [facility] December 19, 2014 CHEST CONGESTION AND COUGH [facility] January 11, 2015 Problems Problem Type Condition ICD-9 Code Onset Dates Condition Status Problem Prediabetes 790.29 Active Problem Hypothyroid 244.9 Active Problem Dependent edema 782.3 Active Problem HTN (hypertension) 401.9 Active Assessment Hypothyroid 244.9 Active Problem Obesity 278.00 Active Problem Environmental allergies V15.09 Active Medications Medication Code System Code Instructions Start Date End Date Status Dosage Synthroid [facility] [address]-02 25 MCG Orally Once a day Jun 09, 2015 Active 1 tablet Social History Social History Element Qualifiers Date Reported Ethnicity . Status , Is sudanese your primary language? Yes May 31, 2015 children . None May 31, 2015 Tobacco Use: . Are you a: never smoker May 31, 2015 Depression Screening: . negative 10/19/2014 May 31, 2015 Do you have pets? . Status: Yes, Type: dog(s) May 31, 2015 Marital Status: . May 31, 2015 Caffeine intake? . Status: Yes, What type: Coffee, 1 - 2 cup(s) a day May 31, 2015 Do you exercise? . Answer: Yes, Type: walking May 31, 2015 Do you drink alcohol? . Status: Yes, Type: Beer, How often? 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
--- OUTSIDE RECORDS SUMMARY | 2019-06-24 11:10 | XMS REPORT ---
Author Author Annmarie Wesley eClinicalWorks Address Unknown Phone Unavailable Care Team Providers Care Dumper Name Role Phone Annmarie Wesley CP Unavailable Encounters Encounter Location Date Follow-Up [facility] May 14, 2013 DIARRHEA [facility] Jul 16, 2013 sore throat [facility] Jul 05, 2013 [place] [address] [facility] Sep 09, 2013 Unknown [facility] May 03, 2013 Unknown [facility] Jul 12, 2013 PAIN IN RIGHT SIDE/SWOLLEN FEET [facility] Apr 30, 2013 CONSTANT VOMITTING [facility] Oct 19, 2014 SINUS [facility] Jul 29, 2014 flu like sx's [facility] Sep 19, 2014 Test results [facility] Nov 07, 2015 Refill [facility] Nov 24, 2015 lab results [facility] Jun 09, 2015 LAB RESULTS [facility] Jul 20, 2015 FOOT AND LEG PAIN/TIGHTNESS [facility] March 28, 2015 Results [facility] March 30, 2015 cough/chest congestion [facility] December 19, 2014 CHEST CONGESTION AND COUGH [facility] January 11, 2015 Problems Problem Type Condition ICD-9 Code Onset Dates Condition Status Problem Edema, unspecified R60.9 Active Problem Morbid obesity due to excess calories E66.01 Active Problem Acquired hypothyroidism E03.9 Active Problem New onset type 1 diabetes mellitus, uncontrolled E10.65 Active Problem Acute hyperglycemia R73.9 Active Problem Other specified hypothyroidism E03.8 Active Problem Environmental allergies Z91.09 Active Problem Essential hypertension I10 Active Medications Medication Code System Code Instructions Start Date End Date Status Dosage Bentyl [facility] [address]-02 20 mg Orally Four times a day Oct 31, 2015 November 30, 2015 Active 1 tablet Social History Social History Element Qualifiers Date Reported 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 None Oct 31, 2015 Last Colonoscopy: . 2010Oct 31, 2015 Tobacco Use: . Are you a: never smoker Oct 31, 2015 Flu Vaccine: . NO Oct 31, 2015 Use of recreational / street drugs? . Answer: No Oct 31, 2015 Do you have pets? . Status: Yes, Type: dog(s) Oct 31, 2015 Ethnicity . Status , Is urdu your primary language? Yes Oct 31, 2015 Marital Status: . Oct 31, 2015 Caffeine intake? . Status: Yes, What type: Coffee, 1 - 2 cup(s) a day Oct 31, 2015 Do you exercise? . Answer: Yes, Type: walking Oct 31, 2015 Depression Screening: . negative Oct 31, 2015 Last Bone Density: . never Oct 31, 2015 Do you drink alcohol? . Status: Yes, Type: Beer, How often? Socially Oct 31, 2015 Summary Purpose eClinicalWorks Submission
--- OUTSIDE RECORDS SUMMARY | 2019-06-24 11:10 | XMS REPORT ---
Author Author Mame Ambriz [facility] eClinicalWorks Address Unknown Phone Unavailable Care Team Providers Care [place]stone Erector Name Role Phone Mame Ambriz Unavailable Encounters Encounter Location Date Follow-Up [facility] May 14, 2013 DIARRHEA [facility] Jul 16, 2013 sore throat [facility] Jul 05, 2013 [place] [facility] Sep 09, 2013 Unknown [facility] May 03, 2013 Unknown [facility] Jul 12, 2013 PAIN IN RIGHT SIDE/SWOLLEN FEET [facility] Apr 30, 2013 CONSTANT VOMITTING [facility] Oct 19, 2014 SINUS [facility] Jul 29, 2014 flu like sx's [facility] Sep 19, 2014 Test results [facility] Nov 07, 2015 lab results [facility] Jun 09, 2015 LAB RESULTS [facility] Jul 20, 2015 FOOT AND LEG PAIN/TIGHTNESS [facility] March 28, 2015 Results [facility] March 30, 2015 cough/chest congestion [facility] December 19, 2014 CHEST CONGESTION AND COUGH [facility] January [...] Z91.09 Active Problem Essential hypertension I10 Active Social History Social History Element Qualifiers Date Reported 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 None Oct 31, 2015 Last Colonoscopy: . 2010Oct 31, 2015 Tobacco Use: . Are you a: never smoker Oct 31, 2015 Flu Vaccine: . NO Oct 31, 2015 Use of recreational / street drugs? . Answer: No Oct 31, 2015 Do you have pets? . Status: Yes, Type: dog(s) Oct 31, 2015 Ethnicity . Status , Is japanese your primary language? Yes Oct 31, 2015 [...]
--- OUTSIDE RECORDS SUMMARY | 2019-06-24 11:10 | XMS REPORT ---
Author Author Mame Pope Organization eClinicalWorks Address Unknown Phone Unavailable Care Team Providers Care Document Control Supervisor Name Role Phone Niko Mame CP Unavailable Allergies, Adverse Reactions, Alerts Substance Reaction Event Type penicillin rash Drug Allergy Encounters Encounter Location Date Follow-Up [facility] May 14, 2013 DIARRHEA [facility] Jul 16, 2013 sore throat [facility] Jul 05, 2013 [place] [facility] Sep 09, 2013 Unknown [facility] May 03, 2013 Unknown [facility] Jul 12, 2013 PAIN IN RIGHT SIDE/SWOLLEN FEET [facility] Apr 30, 2013 CONSTANT VOMITTING [facility] Oct 19, 2014 SINUS [facility] Jul 29, 2014 flu like sx's [facility] Sep 19, 2014 Problems Problem Type Condition ICD-9 Code Onset Dates Condition Status Assessment Nausea 787.02 Active Assessment Viral gastroenteritis 008.8 Active Problem Prediabetes 790.29 Active Problem Hypothyroid 244.9 Active Problem Dependent edema 782.3 Active Problem HTN (hypertension) 401.9 Active Assessment Diarrhea 787.91 Active Problem Obesity 278.00 Active Problem Environmental allergies V15.09 Active Medications Medication Code System Code Instructions Start Date End Date Status Dosage Ana [facility] [address]-36 180 MG Orally Once a day Active 1 tablet B12 Liquid Health Booster Unknown 0 1000 MCG/15ML Orally every 2 weeks Active 15 ml Tylenol [facility] [address]-67 325 MG Orally PRN Active 1 tablet as needed Phenergan [facility] [address]-63 25 MG Orally Inactive Unknown Promethazine HCl [facility] [address]-96 25 MG by mouth every 6 hours prn nausea Oct 19, 2014 Nov 18, 2014 Active 1 tablet Social History Social History Element Qualifiers Date Reported Flu Vaccine: . no Oct 19, 2014 children . None Oct 19, 2014 Tobacco Use: . Are you a: never smoker Oct 19, 2014 Depression Screening: . negative 10/19/2014 Oct 19, 2014 Do you have pets? . Status: Yes, Type: dog(s) Oct 19, 2014 Marital Status: . Oct 19, 2014 Caffeine intake? . Status: Yes, What type: Coffee, 1 - 2 cup(s) a day Oct 19, 2014 Do you exercise? . Answer: Yes, Type: walking Oct 19, 2014 Do you drink alcohol? . Status: Yes, Type: Beer, How often? 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 Oct 19, 2014 Family history Qualifier Description Comment Date Reported Mother COPD Oct 19, 2014 Maternal Grandmother ovarian cancer Oct 19, 2014 Father diabetes mellitus, dementia Oct 19, 2014 Paternal Grandfather diabetes mellitus Oct 19, 2014 Vital Signs Date/Time: Oct 19, 2014 Weight 322 lbs Height 64 in Temperature 98.7 F Cardiac Monitoring Heart Rate 80 /min Blood Pressure Diastolic 70 mm Hg Blood Pressure Systolic 110 mm Hg Results CBC Platelets(- ) 288 NEUTROPHILS(- ) MID-0.4,GRA-6.8 MCHC(- ) 32.6 MCH(- ) 27.3 MCV(- ) 83.8 WBC(- ) 7.9 RDW(- ) 13.5 RBC(- ) 5.17 Hemoglobin(- ) 14.1 Hematocrit(- ) 43.3 Summary Purpose eClinicalWorks Submission
--- OUTSIDE RECORDS SUMMARY | 2019-06-24 11:10 | XMS REPORT ---
Author Author Lona Rodriguez [facility] eClinicalWorks Address Unknown Phone Unavailable Care Team Providers Care Manager Lpn Name Role Phone Lona Rodriguez Unavailable Encounters Encounter Location Date Follow-Up [facility] May 14, 2013 DIARR[place]A [facility] Jul 16, 2013 sore throat [facility] Jul 05, 2013 [place] [facility] Sep 09, 2013 Unknown [facility] May 03, 2013 Unknown [facility] Jul 12, 2013 PAIN IN RIGHT SIDE/SWOLLEN FEET [facility] Apr 30, 2013 CONSTANT VOMITTING [facility] Oct 19, 2014 SINUS [facility] Jul 29, 2014 flu like sx's [facility] Sep 19, 2014 FOOT AND LEG PAIN/TIGHTNESS [facility] March 28, 2015 Results [facility] March 30, 2015 cough/chest congestion [facility] December 19, 2014 CHEST CONGESTION AND COUGH [facility] January 11, 2015 Problems Problem Type Condition ICD-9 Code Onset Dates Condition Status Problem Prediabetes 790.29 Active Problem Hypothyroid 244.9 Active Problem Dependent edema 782.3 Active Problem HTN (hypertension) 401.9 Active Problem Obesity 278.00 Active Problem Environmental allergies V15.09 Active Social History Social History Element Qualifiers Date Reported Flu Vaccine: . no March 28, 2015 children . None March 28, 2015 Tobacco Use: . Are you a: never smoker March 28, 2015 Depression Screening: . negative 10/19/2014 March 28, 2015 Do you have pets? . Status: Yes, Type: dog(s) March 28, 2015 Marital Status: . March 28, 2015 Caffeine intake? . Status: Yes, What type: Coffee, 1 - 2 cup(s) a day March 28, 2015 Do you exercise? . Answer: Yes, Type: walking March 28, 2015 Do you drink alcohol? . Status: Yes, Type: Beer, How often? 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
--- OUTSIDE RECORDS SUMMARY | 2019-06-24 11:10 | XMS REPORT ---
Author Author Mame Ambriz [facility] eClinicalWorks Address Unknown Phone Unavailable Care Team Providers Care Admissions Advisor Name Role Phone Mame Ambriz CP Unavailable [...] Active Problem Irritable bowel syndrome K58.9 Active Medications No Known Medications Results No Known Results Summary Purpose eClinicalWorks Submission
--- OUTSIDE RECORDS SUMMARY | 2019-06-24 11:10 | XMS REPORT ---
Author Author Mame Ambriz [facility] eClinicalWorks Address Unknown Phone Unavailable Care Team Providers Care Machine Cloth Measurer Name Role Phone Mame Ambriz CP Unavailable [...] Start Date End Date Status Dosage Synthroid [facility] 67463637102 25 MCG Active 1 tablet po qd LAST REFILL, NEEDS TO BE SEEN Results No Known Results Summary Purpose eClinicalWorks Submission
--- OUTSIDE RECORDS SUMMARY | 2019-06-24 11:10 | XMS REPORT ---
Author Author Mame Pope Organization eClinicalWorks Address Unknown Phone Unavailable Care Team Providers Care Manager Project Name Role Phone Niko Mame CP Unavailable Allergies, Adverse Reactions, Alerts Substance Reaction Event Type penicillin rash Drug Allergy Encounters Encounter Location Date Follow-Up [facility] May 14, 2013 DIARRHEA [facility] Jul 16, 2013 sore throat [facility] Jul 05, 2013 [address] [facility] Sep 09, 2013 Unknown [facility] May 03, 2013 Unknown [facility] Jul 12, 2013 PAIN IN RIGHT SIDE/SWOLLEN FEET [facility] Apr 30, 2013 Problems Problem Type Condition ICD-9 Code Onset Dates Condition Status Assessment Obesity 278.00 Active Assessment Prediabetes 790.29 Active Problem Prediabetes 790.29 Active Problem Hypothyroid 244.9 Active Problem Dependent edema 782.3 Active Problem HTN (hypertension) 401.9 Active Assessment Dependent edema 782.3 Active Problem Obesity 278.00 Active Problem Environmental allergies 477.9 Active Medications Medication Code System Code Instructions Start Date End Date Status Dosage Tylenol [facility] [address]-70 325 MG Orally PRN Active 1 tablet as needed B12 Liquid Health Booster [facility] 74904 1000 MCG/15ML Orally Once a day Active 15 ml Ana MULTUM 77339 180 MG Orally Once a day Active 1 tablet Levothyroxine Sodium [facility] [address]-12 25 MCG Orally Once a day Active 1 tablet on an empty stomach in the morning Social History Social History Element Qualifiers Date Reported children . None Sep 09, 2013 Tobacco Use: . Are you a: never smoker Sep 09, 2013 Marital Status: . Sep 09, 2013 Do you drink alcohol? . Status: Yes, Type: Beer, How often? 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
--- OUTSIDE RECORDS SUMMARY | 2019-06-24 11:10 | XMS REPORT ---
Author Author Mame Pope Organization eClinicalWorks Address Unknown Phone Unavailable Care Team Providers Care Forensic Dna Analyst Name Role Phone Mame Pope CP Unavailable Encounters Encounter Location Date Unknown Juan A [facility] May 03, 2013 Problems Problem Type Condition ICD-9 Code Onset Dates Condition Status Problem Environmental allergies 477.9 Active Problem HTN (hypertension) 401.9 Active Problem Obesity 278.00 Active Social History Social History Element Qualifiers Date Reported children . None Apr 30, 2013 Tobacco Use: . Are you a: never smoker Apr 30, 2013 Marital Status: . Apr 30, 2013 Do you drink alcohol? . Status: Yes, Type: Beer, How often? 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
--- OUTSIDE RECORDS SUMMARY | 2019-06-24 11:10 | XMS REPORT ---
Author Author Mame Pope [facility] eClinicalWorks Address Unknown Phone Unavailable Care Team Providers Care Bleacher Lard Name Role Phone Mame Pope CP Unavailable Allergies, Adverse Reactions, Alerts Substance Reaction Event Type penicillin rash Drug Allergy Encounters Encounter Location Date Follow-Up [facility] May 14, 2013 DIARR[place]A [facility] Jul 16, 2013 sore throat [facility] Jul 05, 2013 [place] [facility] Sep 09, 2013 Unknown [facility] May 03, 2013 Unknown [facility] Jul 12, 2013 PAIN IN RIGHT SIDE/SWOLLEN FEET [facility] Apr 30, 2013 SINUS [facility] Jul 29, 2014 flu like sx's [facility] Sep 19, 2014 Problems Problem Type Condition ICD-9 Code Onset Dates Condition Status Assessment Flu-like symptoms 780.99 Active Problem Prediabetes 790.29 Active Problem Hypothyroid 244.9 Active Problem Dependent edema 782.3 Active Problem HTN (hypertension) 401.9 Active Assessment URI (upper respiratory infection) 465.9 Active Problem Obesity 278.00 Active Problem Environmental allergies V15.09 Active Medications Medication Code System Code Instructions Start Date End Date Status Dosage Levothyroxine Sodium [facility] [address]-64 25 MCG Orally Once a day Active 1 tablet on an empty stomach in the morning Ana [facility] [address]-90 180 MG Orally Once a day Active 1 tablet Albuterol Sulfate HFA [facility] [address]-74 108 (90 Base) MCG/ACT Inhalation every 4 hrs Jul 29, 2014 Active 2 puffs as needed B12 Liquid Health Booster Unknown 0 1000 MCG/15ML Orally every 2 weeks Active 15 ml Tylenol [facility] [address]-18 325 MG Orally PRN Active 1 tablet as needed Zithromax Z-Issac [facility] [address]-50 250 MG Orally Once a day Sep 19, 2014 Sep 24, 2014 Active 2 tablets on the first day, then 1 tablet daily for 4 days Social History Social History Element Qualifiers Date Reported Depression Screening: . negative 09/19/2014 Sep 19, 2014 Flu Vaccine: . no Sep 19, 2014 children . None Sep 19, 2014 Tobacco Use: . Are you a: never smoker Sep 19, 2014 Marital Status: . Sep 19, 2014 Do you drink alcohol? . Status: Yes, Type: Beer, How often? 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
--- OUTSIDE RECORDS SUMMARY | 2019-06-24 11:10 | XMS REPORT ---
Author Author Mariluz Nunez [facility] eClinicalWorks Address Unknown Phone Unavailable Care Team Providers Care Account Information Clerk Name Role Phone Mariluz Nunez CP Unavailable Allergies, Adverse Reactions, Alerts Substance Reaction Event Type penicillin rash Drug Allergy Encounters Encounter Location Date Follow-Up [facility] May 14, 2013 DIARRHEA [facility] Jul 16, 2013 Unknown [facility] May 03, 2013 Unknown [facility] Jul 12, 2013 PAIN IN RIGHT SIDE/SWOLLEN FEET [facility] Apr 30, 2013 Problems Problem Type Condition ICD-9 Code Onset Dates Condition Status Assessment Abdominal cramping 789.00 Active Assessment Excessive sweating 780.8 Active Assessment Sinus tachycardia 427.89 Active Assessment Nausea 787.02 Active Problem Hypothyroid 244.9 Active Problem Obesity 278.00 Active Problem Prediabetes 790.29 Active Assessment Diarrhea 787.91 Active Assessment Light headed 780.4 Active Problem Environmental allergies 477.9 Active Problem HTN (hypertension) 401.9 Active Medications Medication Code System Code Instructions Start Date End Date Status Dosage Promethazine HCl [facility] [address]-06 25 MG Orally Once a day Jul 16, 2013 Aug 15, 2013 Active 1 tablet at bedtime Levothyroxine Sodium [facility] [address]-73 25 MCG Orally Once a day Active 1 tablet on an empty stomach in the morning Ana [facility] 52184 180 MG Orally Once a day Active 1 tablet B12 Liquid Health Booster [facility] 95799 1000 MCG/15ML Orally Once a day Active 15 ml Bentyl [facility] [address]-08 10 mg Orally Four times a day Jul 16, 2013 Jul 26, 2013 Active 1 capsule Entex T [facility] [address]-33 60-375 MG Orally twice a day (bid) Jul 12, 2013 Aug 11, 2013 Inactive 1 tablet as needed Social History Social History Element Qualifiers Date Reported children . None Jul 16, 2013 Tobacco Use: . Are you a: never smoker Jul 16, 2013 Marital Status: . Jul 16, 2013 Do you drink alcohol? . Status: Yes, Type: Beer, How often? 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
--- OUTSIDE RECORDS SUMMARY | 2019-06-24 11:10 | XMS REPORT ---
Author Author Mame Pope Organization eClinicalWorks Address Unknown Phone Unavailable Care Team Providers Care Retread Supervisor Name Role Phone Juan AAlex Mame CP Unavailable Allergies, Adverse Reactions, Alerts Substance Reaction Event Type penicillin rash Drug Allergy Encounters Encounter Location Date Follow-Up [facility] May 14, 2013 Unknown [facility] May 03, 2013 Unknown [facility] Jul 12, 2013 PAIN IN RIGHT SIDE/SWOLLEN FEET [facility] Apr 30, 2013 Problems Problem Type Condition ICD-9 Code Onset Dates Condition Status Assessment UTI (lower urinary tract infection) 599.0 Active Problem Environmental allergies 477.9 Active Problem HTN (hypertension) 401.9 Active Problem Obesity 278.00 Active Assessment Dependent edema 782.3 Active Assessment Right flank pain 789.00 Active Assessment HTN (hypertension) 401.9 Active Assessment Obesity 278.00 Active Medications Medication Code System Code Instructions Start Date End Date Status Dosage Hydrochlorothiazide [facility] [address]-60 12.5 MG Orally Once a day Apr 30, 2013 Active 1 capsule Cipro [facility] [address]-64 250 MG Orally Twice a day Apr 30, 2013 May 07, 2013 Active 1 tablet Ana MULTUM 19566 180 MG Orally Once a day Active 1 tablet Tylenol [facility] [address]-01 325 MG Orally every 6 hrs Active 1 tablet as needed Skelaxin [facility] [address]-22 800 MG Orally Three times a day prn back pain Apr 30, 2013 May 30, 2013 Active 1/2-1 tablet Social History Social History Element Qualifiers Date Reported children . None Apr 30, 2013 Tobacco Use: . Are you a: never smoker Apr 30, 2013 Marital Status: . Apr 30, 2013 Do you drink alcohol? . Status: Yes, Type: Beer, How often? 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 Apr 30, 2013 Family history Qualifier Description Comment Date Reported Mother COPD Apr 30, 2013 Maternal Grandmother ovarian cancer Apr 30, 2013 Father diabetes mellitus, dementia Apr 30, 2013 Paternal Grandfather diabetes mellitus Apr 30, 2013 Vital Signs Date/Time: Apr 30, 2013 Weight 310 lbs Height 64 inches Temperature 98.1 F Cardiac Monitoring Heart Rate 80 Beats per Minute Blood Pressure Diastolic 100 mm Hg Blood Pressure Systolic 150 mm Hg Results VITAMIN D, 1,25 DIHYDROXY LC/MS/MS HEMOGLOBIN A1c URINE AUTO W/O SCOPE Bili(- ) SMALL pH(- ) 5.0 Spec Shirley(- ) 1.020 Glucose(- ) NEG Ketones(- ) TRACE Leuk Est(- ) TRACE Urobilinogen(- ) 0.2 Nitrite(- ) NEG Protein(- ) TRACE Blood(- ) TRACE COMPREHENSIVE METABOLIC PANEL CULTURE, URINE, ROUTINE TSH EKG W/INTERP/ELECTR CBC (INCLUDES DIFF/PLT) LIPID PANEL Summary Purpose eClinicalWorks Submission
--- OUTSIDE RECORDS SUMMARY | 2019-06-24 11:10 | XMS REPORT ---
Author Author Wilver Powell Organization eClinicalWorks Address Unknown Phone Unavailable Care Team Providers Care Pyrometer Operator Name Role Phone Wilver Powell CP Unavailable Encounters Encounter Location Date Unknown [facility] May 03, 2013 Unknown [facility] Jul 12, 2013 Problems Problem Type Condition ICD-9 Code Onset Dates Condition Status Problem Hypothyroid 244.9 Active Problem Obesity 278.00 Active Problem Prediabetes 790.29 Active Problem Environmental allergies 477.9 Active Problem HTN (hypertension) 401.9 Active Medications Medication Code System Code Instructions Start Date End Date Status Dosage Entex T [facility] [address]-59 60-375 MG Orally twice a day (bid) Jul 12, 2013 Aug 11, 2013 Active 1 tablet as needed Bromfed DM [facility] [address]-95 30-2-10 MG/5ML Orally every 6 hrs Jul 05, 2013 Jul 15, 2013 Inactive 10 ml as needed Social History Social History Element Qualifiers Date Reported children . None Jul 05, 2013 Tobacco Use: . Are you a: never smoker Jul 05, 2013 Marital Status: . Jul 05, 2013 Do you drink alcohol? . Status: Yes, Type: Beer, How often? 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
--- OUTSIDE RECORDS SUMMARY | 2019-06-24 11:10 | XMS REPORT ---
Author Author Magalys Pereira Organization eClinicalWorks Address Unknown Phone Unavailable Care Team Providers Care Residential Air Sealing Technician Name Role Phone Magalys Pereira CP Unavailable Allergies, Adverse Reactions, Alerts Substance [...] Problem Irritable bowel syndrome K58.9 Active Assessment New onset type 1 diabetes mellitus, uncontrolled E10.65 Active Assessment Environmental allergies Z91.09 Active Assessment Sore throat J02.9 Active Medications Medication Code System Code Instructions Start Date End Date Status Dosage Omeprazole [facility] [address]-11 40 MG Orally Once a day Active 1 capsule Tylenol [facility] [address]-40 325 MG Orally PRN Active 1 tablet as needed Zithromax Z-Issac [facility] [address]-21 250 MG Orally Once a day January 20, 2017 January 25, 2017 Active 2 tablets on the first day, then 1 tablet daily for 4 days Ana [facility] [address]-09 180 MG Orally Once a day Active 1 tablet Vital Signs Date/Time: January 20, 2017 Blood Pressure Systolic 118 mm Hg Weight refused lbs Height 64 in Temperature 98.8 F Cardiac Monitoring Heart Rate 94 /min Blood Pressure Diastolic 70 mm Hg Results Name Result Date Reference Range Unit Abnormality Flag GLUCOSE FINGER STICK DECADRON 1MGx4 Summary Purpose eClinicalWorks Submission
--- OUTSIDE RECORDS SUMMARY | 2019-06-24 11:10 | XMS REPORT ---
Author Author Wilver Powell Organization eClinicalWorks Address Unknown Phone Unavailable Care Team Providers Care Rn Shift Mgr Name Role Phone Wilver Powell CP Unavailable Allergies, Adverse Reactions, Alerts Substance Reaction Event Type penicillin rash Drug Allergy Encounters Encounter Location Date Follow-Up [facility] May 14, 2013 DIARRHEA [facility] Jul 16, 2013 sore throat [facility] Jul 05, 2013 Unknown [facility] May 03, 2013 Unknown [facility] Jul 12, 2013 PAIN IN RIGHT SIDE/SWOLLEN FEET [facility] Apr 30, 2013 Problems Problem Type Condition ICD-9 Code Onset Dates Condition Status Problem Hypothyroid 244.9 Active Problem Obesity 278.00 Active Problem Prediabetes 790.29 Active Assessment Upper respiratory infection 465.9 Active Problem Environmental allergies 477.9 Active Problem HTN (hypertension) 401.9 Active Medications Medication Code System Code Instructions Start Date End Date Status Dosage Levothyroxine Sodium [facility] [address]-80 25 MCG Orally Once a day Active 1 tablet on an empty stomach in the morning B12 Liquid Health Booster [facility] 59456 1000 MCG/15ML Orally Once a day Active 15 ml Zithromax Z-Issac [facility] [address]-95 250 MG Orally as directed Jul 05, 2013 Jul 10, 2013 Active as directed Bromfed DM [facility] [address]-58 30-2-10 MG/5ML Orally every 6 hrs Jul 05, 2013 Jul 15, 2013 Active 10 ml as needed Ana M[facility] 59871 180 MG Orally Once a day Active 1 tablet Social History Social History Element Qualifiers Date Reported children . None Jul 05, 2013 Tobacco Use: . Are you a: never smoker Jul 05, 2013 Marital Status: . Jul 05, 2013 Do you drink alcohol? . Status: Yes, Type: Beer, How often? 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
--- OUTSIDE RECORDS SUMMARY | 2019-06-24 11:10 | XMS REPORT ---
Author Author Mame Ambriz [facility] eClinicalWorks Address Unknown Phone Unavailable Care Team Providers Care Grain Combiner Name Role Phone Mame Ambriz CP Unavailable [...] Start Date End Date Status Dosage Synthroid [facility] 43882960280 25 MCG Inactive 1 tablet po qd LAST REFILL, NEEDS TO BE SEEN Lisinopril ND 64755367022 20 mg orally qd LAST REFILL, NEEDS TO BE SEEN Active 1 tablet Results No Known Results Summary Purpose eClinicalWorks Submission
--- OUTSIDE RECORDS SUMMARY | 2019-06-24 11:10 | XMS REPORT ---
Author Author Mame Ambriz [facility] eClinicalWorks Address Unknown Phone Unavailable Care Team Providers Care Pharmacist Name Role Phone Mame Ambriz CP Unavailable [...] Start Date End Date Status Dosage Lisinopril [facility] 65676443493 20 mg Active 1 tablet po qd LAST REFILL, NEEDS TO BE SEEN Results No Known Results Summary Purpose eClinicalWorks Submission
--- OUTSIDE RECORDS SUMMARY | 2019-06-24 11:10 | XMS REPORT ---
Author Wilver Jorge [facility] eClinicalWorks Address Unknown Phone Unavailable Care Team Providers Care Chicken Hanger Name Role Phone Wilver Powell CP Unavailable [...] E66.01 Active Problem Acquired hypothyroidism E03.9 Active Assessment BMI 50.0-59.9, adult Z68.43 Active Assessment Hyperglycemia R73.9 Active Assessment Edema, unspecified R60.9 Active Assessment Morbid obesity due to excess calories E66.01 Active Assessment Dysuria R30.0 Active Assessment Essential hypertension I10 Active Assessment Hypocalcemia E83.51 Active Assessment Cough R05 Active Assessment Acquired hypothyroidism E03.9 Active Assessment Exposure to the flu Z20.828 Active Medications Medication Code System Code Instructions Start Date End Date Status Dosage Bactrim DS [facility] 77815306401 800-160 MG Orally Twice a day Oct 16, 2017 Oct 21, 2017 Active 1 tablet Ana [facility] 88246931109 180 MG Orally Once a day Active 1 tablet Lisinopril ND 25935658159 20 mg Orally Once a day Active 1 tablet Synthroid [facility] 12879786583 25 MCG Orally Once a day Active 1 tablet on an empty stomach in the morning Vitamin D (Ergocalciferol) [facility] 58641764374 13002 UNIT Orally once per week Active 1 capsule Hydrochlorothiazide [facility] 72579853898 12.5 MG Orally Once a day prn Active 1 tablet in the morning Tylenol [facility] 65875135643 325 MG Orally PRN Active 1 tablet as needed Omeprazole [facility] 97119743952 40 MG Orally Once a day Active 1 capsule Tamiflu [facility] 64382210360 75 mg Orally daily Oct 16, 2017 Active 1 capsule Vital Signs Date/Time: Oct 16, 2017 BMI 53.72 Index Weight 313 lbs Height 64 in Temperature 98.3 F Cardiac Monitoring Heart Rate 97 /min Blood Pressure Diastolic 90 mm Hg Blood Pressure Systolic 142 mm Hg Results Name Result Date Reference Range Unit Abnormality Flag COMPREHENSIVE METABOLIC PANEL ----CALCIUM 9.4 [id number] 8.6-10.4 mg/dL N ----CARBON DIOXIDE 23 20171016 20-31 mmol/L N ----ALT 31 20171016 6-29 U/L H ----CREATININE 1.04 72487339 0.50-1.05 mg/dL N ----AST 18 20171016 10-35 U/L N ----eGFR NON-AFR. OMANI 62 [id number] > OR=60 mL/min/1.73m2 N ----ALKALINE PHOSPHATASE 75 20171016 33-130 U/L N ----eGFR 72 [id number] > OR=60 mL/min/1.73m2 N ----BILIRUBIN, TOTAL 0.4 13262835 0.2-1.2 mg/dL N ----BUN/CREATININE RATIO NOT APPLICABLE 20171016 6-22 (calc) ----ALBUMIN/GLOBULIN RATIO 1.7 20171016 1.0-2.5 (calc) N ----SODIUM 136 20171016 135-146 mmol/L N ----GLOBULIN 2.6 53858948 1.9-3.7 g/dL (calc) N ----POTASSIUM 4.4 44109646 3.5-5.3 mmol/L N ----GLUCOSE 114 20171016 65-99 mg/dL H ----CHLORIDE 102 20171016 98-110 mmol/L N ----ALBUMIN 4.3 16456717 3.6-5.1 g/dL N ----UREA NITROGEN (BUN) 14 20171016 7-25 mg/dL N ----PROTEIN, TOTAL 6.9 74216653 6.1-8.1 g/dL N CULTURE, URINE, ROUTINE ----CULTURE, URINE, ROUTINE SEE NOTE [id number] URINE AUTO W/O SCOPE ----Spec Morton 1.020 20171016 ----Turbidity clear 20171016 ----Glucose neg 20171016 ----Ketones neg 20171016 ----Blood trace 20171016 ----Bili neg 20171016 ----Color yellow 20171016 ----pH 6.5 20171016 ----Leuk Est neg 20171016 ----Nitrite neg 20171016 ----Urobilinogen 0.2 20171016 ----Protein neg 20171016 TSH ----TSH 4.49 20171016 mIU/L N HEMOGLOBIN A1c ----HEMOGLOBIN A1c 6.4 31036263 <5.7 % of total Hgb H CBC (INCLUDES DIFF/PLT) ----HEMOGLOBIN 12.4 15821231 11.7-15.5 g/dL N ----RED BLOOD CELL COUNT 5.33 17049492 3.80-5.10 Million/uL H ----MCV 73.9 84569691 80.0-100.0 fL L ----HEMATOCRIT 39.4 33137562 35.0-45.0 % N ----MCHC 31.5 80488858 32.0-36.0 g/dL L ----MCH 23.3 29295761 27.0-33.0 pg L ----PLATELET COUNT 338 03113781 140-400 Thousand/uL N ----RDW 16.1 96280946 11.0-15.0 % H ----MPV 10.3 93395150 7.5-12.5 fL N ----ABSOLUTE LYMPHOCYTES 3235 40383725 850-3900 cells/uL N ----ABSOLUTE NEUTROPHILS 5597 33669033 0726-6362 cells/uL N ----ABSOLUTE EOSINOPHILS 182 47654584 15-500 cells/uL N ----ABSOLUTE MONOCYTES 538 87111215 200-950 cells/uL N ----NEUTROPHILS 58.3 03277081 % N ----WHITE BLOOD CELL COUNT 9.6 55348583 3.8-10.8 Thousand/uL N ----BASOPHILS 0.5 84980744 % N ----ABSOLUTE BASOPHILS 48 79668600 0-200 cells/uL N ----EOSINOPHILS 1.9 20171016 % N ----LYMPHOCYTES 33.7 20171016 % N ----MONOCYTES 5.6 75896346 % N Summary Purpose eClinicalWorks Submission
--- OUTSIDE RECORDS SUMMARY | 2019-06-24 11:10 | XMS REPORT ---
Author Author Mame Ambriz Organization eClinicalWorks Address Unknown Phone Unavailable Care Team Providers Care Carpet Binder Name Role Phone Mame Ambriz CP Unavailable Allergies, Adverse Reactions, Alerts Substance Reaction Event Type penicillin rash Drug Allergy Problems Problem Type Condition Code Onset Dates Condition Status Problem Other specified hypothyroidism E03.8 Active Problem Irritable bowel syndrome K58.9 Active Problem Environmental allergies Z91.09 Active Problem Leukocytosis, unspecified type D72.829 Active Problem Morbid obesity due to excess calories E66.01 Active Problem Hypocalcemia E83.51 Active Problem Essential hypertension I10 Active Problem Acute hyperglycemia R73.9 Active Problem Acquired hypothyroidism E03.9 Active Problem New onset type 1 diabetes mellitus, uncontrolled E10.65 Active Assessment Hypocalcemia E83.51 Active Assessment Acquired hypothyroidism E03.9 Active Assessment Essential hypertension I10 Active Problem Edema, unspecified R60.9 Active Medications Medication Code System Code Instructions Start Date End Date Status Dosage Lisinopril [facility] 68725561309 20 mg Orally Once a day Jul 22, 2017 Active 1 tablet Ana ND 40703422997 180 MG Orally Once a day Active 1 tablet Omeprazole ND 72862188571 40 MG Orally Once a day Active 1 capsule Hydrochlorothiazide ND 35672273125 12.5 MG Orally Once a day prn Jul 22, 2017 Active 1 tablet in the morning Vitamin D (Ergocalciferol) [facility] 08558588025 27619 UNIT Orally once per week Active 1 capsule Synthroid ND 47639711776 25 MCG Orally Once a day Jul 22, 2017 Active 1 tablet on an empty stomach in the morning Tylenol ND 93686166256 325 MG Orally PRN Active 1 tablet as needed Vital Signs Date/Time: Jul 22, 2017 BMI 53.55 Index Weight 312 lbs Height 64 in Cardiac Monitoring Heart Rate 82 /min Blood Pressure Diastolic 92 mm Hg Blood Pressure Systolic 140 mm Hg Results No Known Results Summary Purpose eClinicalWorks Submission
--- OUTSIDE RECORDS SUMMARY | 2019-06-24 11:11 | XMS REPORT ---
Author Author Mame Ambriz [facility] eClinicalWorks Address Unknown Phone Unavailable Care Team Providers Care Rail Car Welder Name Role Phone Mame Ambriz CP Unavailable Allergies, Adverse Reactions, Alerts Substance Reaction Event Type penicillin rash Drug Allergy Encounters Encounter Location Date Follow-Up [facility] May 14, 2013 DIARRHEA [facility] Jul 16, 2013 sore throat [facility] Jul 05, 2013 SWOLL[place] FEET [facility] Sep 09, 2013 Unknown [facility] May 03, 2013 Unknown [facility] Jul 12, 2013 PAIN IN RIGHT SIDE/SWOLLEN FEET [facility] Apr 30, 2013 CONSTANT VOMITTING [facility] Oct 19, 2014 Pt has breast pain [facility] May 21, 2016 Unknown [facility] December 05, 2015 SINUS [facility] Jul 29, 2014 flu like sx's [facility] Sep 19, 2014 Test results [facility] Nov 07, 2015 Refill [facility] Nov 24, 2015 lab results [facility] Jun 09, 2015 LAB RESULTS [facility] Jul 20, 2015 FOOT AND LEG PAIN/TIGHTNESS [facility] March 28, 2015 Results [facility] March 30, 2015 cough/chest congestion [facility] December 19, 2014 CHEST CONGESTION AND COUGH [facility] January 11, 2015 Sinus problems [facility] December 01, 2015 Problems Problem Type Condition ICD-9 Code Onset Dates Condition Status Assessment Pain of both breasts N64.4 Active Problem Other specified hypothyroidism E03.8 Active [...] Start Date End Date Status Dosage Ana [place] [address]-37 180 MG Orally Once a day Active 1 tablet Omeprazole [place] [address]-70 40 MG Orally Once a day Active 1 capsule Tylenol [place] [address]-03 325 MG Orally PRN Active 1 tablet as needed Hydrochlorothiazide [place] [address]-16 12.5 MG Orally as needed (prn) May 31, 2015 Active 1-2 tablets Social History Social History Element Qualifiers Date 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 None May 21, 2016 Last Colonoscopy: . 2010May 21, 2016 Tobacco Use: . Are you a: never smoker May 21, 2016 Flu Vaccine: . NO May 21, 2016 Use of recreational / street drugs? . Answer: No May 21, 2016 Do you have pets? . Status: Yes, Type: dog(s) May 21, 2016 Ethnicity . Status , Is pashto your primary language? Yes May 21, 2016 [...] Beer, How often? Socially May 21, 2016 Family history Qualifier Description Comment Date Reported Maternal Grandmother ovarian cancer May 21, [...] Other: Comment not available May 21, 2016 Vital Signs Date/Time: May 21, 2016 Weight 288 lbs Height 64 in Cardiac Monitoring Heart Rate 72 /min Blood Pressure Diastolic 80 mm Hg Blood Pressure Systolic 130 mm Hg Immunizations Vaccine Administration Date FLU 18 YRS & UP [address] May 21, 2016 Summary Purpose eClinicalWorks Submission
--- OUTSIDE RECORDS SUMMARY | 2019-06-24 11:11 | XMS REPORT ---
Author Author [facility] Address Unknown Phone Unavailable Care Team Providers Care Area Development Consultant Name Role Phone Unavailable Unavailable Problems This patient has no known problems. Allergies, Adverse Reactions, Alerts This patient has no known allergies or adverse reactions. Medications This patient has no known medications. Encounters Start Date/Time End Date/Time Encounter Type Admission Type Attending Clinicians Care Facility Care Department Encounter ID 2019-01-29 13:51:00 2019-01-29 13:51:00 Outpatient [id number]
--- OUTSIDE RECORDS SUMMARY | 2019-06-24 11:11 | XMS REPORT ---
Author Author Magalys Pereira [facility] eClinicalWorks Address Unknown Phone Unavailable Care Team Providers Care Neonatal Pediatric Nurse Name Role Phone Maaglys Pereira Unavailable Allergies, Adverse Reactions, Alerts Substance Reaction Event Type penicillin rash Drug Allergy Encounters Encounter Location Date Follow-Up [facility] May 14, 2013 DIARRHEA [facility] Jul 16, 2013 sore throat [facility] Jul 05, 2013 SWOLLEN FEET [facility] Sep 09, 2013 Unknown [facility] May 03, 2013 Unknown [facility] Jul 12, 2013 PAIN IN RIGHT SIDE/SWOLLEN FEET [facility] Apr 30, 2013 CONSTANT VOMITTING [facility] Oct 19, 2014 SINUS [facility] Jul 29, 2014 flu like sx's [facility] Sep 19, 2014 Test results [facility] Nov 07, 2015 Refill [facility] Nov 24, 2015 lab results [facility] Jun 09, 2015 LAB RESULTS [facility] Jul 20, 2015 FOOT AND LEG PAIN/TIGHTNESS [facility] March 28, 2015 Results [facility] March 30, 2015 cough/chest congestion [facility] December 19, 2014 CHEST CONGESTION AND COUGH [facility] January 11, 2015 Sinus problems [facility] December 01, 2015 Problems Problem Type Condition ICD-9 Code Onset Dates Condition Status Assessment Sore throat J02.9 Active Problem Other specified hypothyroidism E03.8 Active Problem Edema, unspecified R60.9 Active Assessment Sinusitis J32.9 Active Problem Morbid obesity due to excess calories E66.01 Active Problem Acquired hypothyroidism E03.9 Active Problem New onset type 1 diabetes mellitus, uncontrolled E10.65 Active Problem Essential hypertension I10 Active Problem Acute hyperglycemia R73.9 Active Problem Irritable bowel syndrome K58.9 Active Problem Environmental allergies Z91.09 Active Medications Medication Code System Code Instructions Start Date End Date Status Dosage Tylenol [facility] [address]-06 325 MG Orally PRN Active 1 tablet as needed Omeprazole [facility] [address]-65 40 MG Orally Once a day Active 1 capsule Naproxen [facility] [address]-64 375 MG Orally Twice a day December 01, 2015 December 31, 2015 Active 1 tablet Hydrochlorothiazide [facility] [address]-20 12.5 MG Orally as needed (prn) May 31, 2015 Active 1-2 tablets Ana [facility] [address]-28 180 MG Orally Once a day Active 1 tablet Synthroid [facility] 59455607087 25 MCG Orally Once a day Active 1 tablet Zithromax Z-Issac [facility] [address]-72 250 MG Orally Once a day December 01, 2015 December 06, 2015 Active 2 tablets on the first day, then 1 tablet daily for 4 days Social History Social History Element Qualifiers Date Reported 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 None December 01, 2015 Last Colonoscopy: . 2011 December 01, 2015 Tobacco Use: . Are you a: never smoker December 01, 2015 Flu Vaccine: . NO December 01, 2015 Use of recreational / street drugs? . Answer: No December 01, 2015 Do you have pets? . Status: Yes, Type: dog(s) December 01, 2015 Ethnicity . Status , Is icelandic your primary language? Yes December 01, 2015 [...] Beer, How often? Socially December 01, 2015 Family history Qualifier Description Comment Date Reported Maternal Grandmother ovarian cancer December 01, [...] Other: Comment not available December 01, 2015 Vital Signs Date/Time: December 01, 2015 Blood Pressure Systolic 130 mm Hg Height 64 in Temperature 97.9 F Cardiac Monitoring Heart Rate 78 /min Blood Pressure Diastolic 80 mm Hg Summary Purpose eClinicalWorks Submission
[2019-06-24 15:20] VITALS: BP 113/68
--- NOTE | 2019-06-24 22:27 | Operative Report ---
DATE OF PROCEDURE: SURGEON: Cesar Sunshine MD PROCEDURE PERFORMED: Esophagogastroduodenoscopy. PREOPERATIVE DIAGNOSES: Gastritis, abdominal pain, bloating, belching. POSTOPERATIVE DIAGNOSES: Gastritis as well as gastroparesis. PREOPERATIVE MEDICATIONS: Consisted of IV sedation administered under MAC anesthesia. PROCEDURE IN DETAIL: Using an Idooble video gastroscope was inserted in the patient's oropharynx, advanced to hypopharynx and down to the esophagus. The mucosa present in the esophagus was normal. The GE junction was at 36 cm. No hiatal hernia was seen. The stomach was entered and insufflated with air. The mucosa present in the cardia, fundus, body, and antrum was found to be normal. There was evidence of mild gastritis on entering the pre-pyloric antrum only. This area was biopsied looking for the H. pylori infection. The motility seemed to be markedly decreased throughout the stomach. The pylorus was entered and the duodenal bulb and postbulbar duodenum were found to be within normal limits. The endoscope was withdrawn back up into the stomach, retroflexed and viewed the GE junction from below, this was normal. The endoscope was placed back into the body of the stomach and then slowly withdrawn back up into the esophagus, hypopharynx, oropharynx, and out of the patient's mouth, and the procedure was ended. In conclusion, we have the findings of gastritis and gastroparesis. Cesar Sunshine MD SAF/MODL /[id number]
== END | disposition home or self-care (01) ==
LOC: OR 11:06
PROVIDERS: ATTEND Internal Medicine Gastroenterology
DX: K21.0 Gastro-esophageal reflux disease with esophagitis (principal); K29.50 Unspecified chronic gastritis without bleeding; K31.84 Gastroparesis; K42.9 Umbilical hernia without obstruction or gangrene; K76.0 Fatty (change of) liver, not elsewhere classified; I10 Essential (primary) hypertension; E66.01 Morbid (severe) obesity due to excess calories; Z88.0 Allergy status to penicillin
CPT/HCPCS: 36415; 43239; 84702; J2001; J2250; J2704; J3010

== ENCOUNTER → 2022-04-16 | Outpatient (CLI) | payer OTHER ==
[~2022-04-16] MED LIST changes: -FENTANYL CITRATE/PF 100MCG/2 ML INJ ONE; -LIDOCAINE HCL 2% LOCAL INJ 5 ML SDV VIAL INJ ONE; -MIDAZOLAM HCL 2 MG/2 ML VIAL ONE; -PROPOFOL IV EMULSION 10 MG/ML 50 ML VIAL ONE
== END ==
LOC: DX 08:33
PROVIDERS: ATTEND Internal Medicine Gastroenterology
DX: R10.13 Epigastric pain (principal)
CPT/HCPCS: 0223U; 36415; 74246